=== PATIENT | female | born 1955 | race Caucasian/White ===

== ENCOUNTER → 2016-12-06 | Outpatient (CLI) | payer MEDICAID ==
[~2016-12-06] MED LIST: Gadobutrol 10 mMOL/10 ML SDV IVPUSH STA
--- NOTE | 2016-12-08 13:57 | MR ---
EXAM DATE: 12/06/16 PATIENT'S AGE: 61 Patient: CLAUDETTE WHITFIELD Facility: [facility] Site . Site : [id number] Study: MRI-Spine Cervical [id number]/2017 6:15:29 PM Ordering Physician: Adam Glynn Final Report: Indication: Neck pain. History of cervical spine fusion. Technique: Noncontrast sagittal T1-T2 STIR and axial GRE sequences are provided no comparisons. Findings: Evidence of anterior screw and plate fixation of C5-6 and 7. Remainder of the cervical spine demonstrates normal overall stature, alignment and intrinsic marrow signal remainder of the cervical spine demonstrates normal wall stature, alignment and marrow signal. No suspicious regions of abnormal contrast enhancement. No abnormal signal cervical cord. C2-3: Unremarkable. C3-4: Unremarkable. C4-5: Mild underlying disc bulge results in no significant central canal or foraminal narrowing. C5-6: Central canal and neural foramina are patent. C6-7: Central canal and neural foramina are patent. C7-T1: Minor disk bulge with asymmetric uncovertebral joint and facet arthropathy results in no central canal or right foraminal with mild left-sided foraminal narrowing. Impression: 1. Postoperative changes of anterior C5-7 fusion. 2. Mild left C7-T1 foraminal narrowing. Dictated by Gaurav Salazar MD @ Dec 07 2016 1:50PM Signed by: Gaurav Salazar MD @12/07/2016 1:55:47 PM (Electronic Signature) Report Signed by Proxy and Original Signed Document filed in the Medical Record. [facility]
== END ==
LOC: MW.MRI 16:29
PROVIDERS: ATTEND Nurse Practitioner Family
DX: M54.2 Cervicalgia (principal); Z98.890 Other specified postprocedural states
CPT/HCPCS: 72156; A9585

== ENCOUNTER 2017-04-18 10:48 | Emergency (ER) | payer MEDICAID ==
--- NOTE | 2017-04-18 11:29 | EDM.PDOC ---
ED HPI GENERAL MEDICAL PROBLEM - General Chief Complaint: Abdominal Pain Stated Complaint: ABDOMINAL SYMPTOMS Time Seen by Provider: 04/18/17 10:59 Source of Information: Reports: Patient History Limitations: Reports: No Limitations - History of Present Illness INITIAL COMMENTS - FREE TEXT/NARRATIVE: Presents reporting tarry stool, fatigue, tiredness and some dizziness. The patient states that over the weekend of April 08 and she had the stomach flu with fever, chills, nausea and vomiting. By MondayApril 12 the symptoms had resolved. On Monday however she started having some black tarry stools and then over the weekend developed epigastric pain, lower abdominal cramping, fatigue, tiredness, dizziness, nausea and vomiting with weight loss. She states that her stools are formed but black and tarry and without blood or mucus. She did call her primary provider was not able to get her into the clinic and ask her to be evaluated in the emergency room. She did eat this morning and was able to keep the food down but does still feel nauseated. epigatric Pain Score (Numeric/FACES): 8 - Related Data Allergies Allergy/AdvReac Type Severity Reaction Status Date / Time erythromycin base Allergy Nausea and Verified 04/18/17 11:03 [Erythromycin Base] Vomiting Penicillins Allergy Rash Verified 04/18/17 11:03 Home Meds: Home Meds Levothyroxine [Synthroid] 1 tab PO DAILY 06/18/14 [History] Nasal [place] For Migraines 1 spray INH ASDIRECTED 06/18/14 [History] Pantoprazole [ProTONIX] 1 tab PO BID 06/18/14 [History] Venlafaxine [Effexor XR] 1 tab PO DAILY 06/18/14 [History] Topiramate [Topiramate ER] 100 mg PO DAILY 05/21/16 [History] traZODone 50 mg PO BEDTIME 05/21/16 [History] Gabapentin [Neurontin] 300 mg PO BID 04/18/17 [History] Ondansetron [Zofran ODT] 1 tab PO Q8H PRN #10 tab.dis 04/18/17 [Rx] Past Medical History - Past Health History Medical/Surgical History: Denies Medical/Surgical History HEENT History: Reports: Hard of Hearing Cardiovascular History: Reports: None Respiratory History: Reports: None Gastrointestinal History: Reports: GERD Genitourinary History: Reports: None 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: Musculoskeletal History: Reports: Fibromyalgia Neurological History: Reports: Migraines Psychiatric History: Reports: Depression Endocrine/Metabolic History: Reports: Hypothyroidism Hematologic History: Reports: None Immunologic History: Reports: None Dermatologic History: Reports: None - Infectious Disease History Infectious Disease History: Reports: Chicken Pox, Measles, Mononucleosis, Mumps - Past Surgical History Head Surgeries/Procedures: Reports: None Female Surgical History: Reports: None Social & Family History - Family History Family Medical History: Noncontributory Cardiac: Reports: DC - Tobacco Use Smoking Status *Q: Never Smoker Second Hand Smoke Exposure: Yes - Caffeine Use Caffeine Use: Reports: Coffee - Alcohol Use Days Per Week of Alcohol Use: 0 - Recreational Drug Use Recreational Drug Use: No ED ROS GENERAL - Review of Systems Review Of Systems: ROS reveals no pertinent complaints other than HPI. ED EXAM, GI/ABD - Physical Exam Exam: See Below Exam Limited By: No Limitations General Appearance: Alert, No Apparent Distress Ears: Normal External Exam Nose: Normal Inspection Throat/Mouth: Normal Inspection Head: Atraumatic, Normocephalic Neck: Normal Inspection Respiratory/Chest: No Respiratory Distress, Lungs Clear, Normal Breath Sounds Cardiovascular: Normal Peripheral Pulses, Regular Rate, Rhythm, No Murmur GI/Abdominal Exam: Normal Bowel Sounds, Soft, No Distention, Other (RUQ and epigastric tenderness) Back Exam: No: CVA Tenderness (L), CVA Tenderness (R) Extremities: Normal Inspection, Normal Range of Motion Neurological: Alert, Oriented Psychiatric: Normal Affect, Normal Mood Skin Exam: Warm, Dry, Intact, Normal Color, No Rash Lymphatic: No Adenopathy Course - Vital Signs Last Recorded V/S: Last Vital Signs Temp 36.6 C 04/18/17 11:03 Pulse 89 04/18/17 11:03 Resp 18 04/18/17 11:03 BP 140/79 04/18/17 11:03 Pulse Ox 96 04/18/17 11:03 - Orders/Labs/Meds Orders: Active Orders 24 hr Category Date Time Status CBC WITH AUTO DIFF [HEME] Stat Lab 04/18/17 11:08 Ordered CMP [COMPREHENSIVE METABOLIC PN,CMP] [CHEM] Stat Lab 04/18/17 11:09 Ordered UA W/MICROSCOPIC [URIN] Stat Lab 04/18/17 11:09 Uncollected - Re-Assessments/Exams Free Text/Narrative Re-Assessment/Exam: 04/18/17 14:18 Attempted to get a stool specimen for occult blood but the rectal vault was completely clean of all stool and residue. Free Text/Narrative Re-Assessment/Exam: 04/18/17 16:16 The patient states that she has an appointment next week with a general surgeon for a colonoscopy and EGD consultation. Departure - Departure Time of Disposition: 16:17 Disposition: Home, Self-Care 01 Condition: Good Clinical Impression: Epigastric abdominal pain - Discharge Information Referrals: PCP,None [Primary Care Provider] - Pipe Cardenas MD [Physician] - Forms: ED Department Discharge Additional Instructions: 1. Please follow-up with Dr. Cardenas. You have been sent home with a copy of your labs and ultrasound report for Dr. Cardenas review. 2. Please follow-up with Dr. Clark, general surgery for an EGD and colonoscopy evaluation as previously scheduled next week. 3. Zofran every 8 hours as needed for nausea 4. [place] every 6-8 hours as needed for pain with food. No driving or operating machinery. 5. Continue to take your pantoprazole as you have been doing 6. Return promptly for vomiting and not able to keep fluids down, pain not relieved by [place], dizziness or fainting, bloody stools. - My Orders Last 24 Hours: My Active Orders 04/18/17 11:08 CBC WITH AUTO DIFF [HEME] Stat 04/18/17 11:09 CMP [COMPREHENSIVE METABOLIC PN,CMP] [CHEM] Stat UA W/MICROSCOPIC [URIN] Stat - Assessment/Plan Last 24 Hours: My Active Orders 04/18/17 11:08 CBC WITH AUTO DIFF [HEME] Stat 04/18/17 11:09 CMP [COMPREHENSIVE METABOLIC PN,CMP] [CHEM] Stat UA W/MICROSCOPIC [URIN] Stat
[2017-04-18] MEDS ORDERED: Sodium Chloride 0.9% 2.5 ML Syringe FLUSH PRN (12:54)
[2017-04-18] MEDS ORDERED: Ondansetron 4 MG/2 ML SDV IVPUSH ONE (12:54)
[2017-04-18] MEDS ORDERED: Sodium Chloride 0.9% 10 ML Syringe FLUSH PRN (12:54)
[2017-04-18] MEDS ORDERED: Morphine 2 MG/ML Syringe IVPUSH ONE (12:54)
[2017-04-18] MEDS ORDERED: Sodium Chloride 0.9% 1,000 ML IV ONE (12:55)
--- NOTE | 2017-04-18 13:59 | US ---
EXAMINATION: Right upper quadrant ultrasound HISTORY: Pain COMPARISON: None TECHNIQUE: Grayscale and color Doppler images obtained of the right upper quadrant. FINDINGS: The visualized pancreas appears normal. The liver is normal in contour and echotexture. No focal hepatic mass. The gallbladder wall thickness is normal. No pericholecystic fluid or shadowing gallstones. Common bile duct measures up to 4 mm. The right kidney measures 10.3 cm is [id number] without evidence of hydronephrosis. Sonographic Bravo sign is negative. IMPRESSION: Grossly unremarkable right upper quadrant ultrasound.
[2017-04-18 16:53] VITALS: BP 135/76
== END 2017-04-18 16:53 | disposition home or self-care (01) ==
LOC: MW.ED 10:48
DX: R10.13 Epigastric pain (principal); K21.9 Gastro-esophageal reflux disease without esophagitis; E03.9 Hypothyroidism, unspecified; G43.909 Migraine, unspecified, not intractable, without status migrainosus; F32.9 Major depressive disorder, single episode, unspecified; Z88.1 Allergy status to other antibiotic agents; Z88.0 Allergy status to penicillin; Z79.899 Other long term (current) drug therapy
CPT/HCPCS: 36415; 76705; 80053; 81001; 82150; 83690; 85025; 96361; 96374; 96375; 99284; J2270; J2405; J7040; 99283

== ENCOUNTER 2017-05-18 10:56 | Day surgery (SDC) | payer MEDICAID ==
[~2017-05-18 10:56] MED LIST changes: -Gadobutrol 10 mMOL/10 ML SDV IVPUSH STA; +Lactated Ringers 1,000 ML IV SCH
[2017-05-18] MEDS ORDERED: Lidocaine 2% 5 ML SDV ONE (11:05)
[2017-05-18] MEDS ORDERED: fentaNYL 100 MCG/2 ML SDV ONE (11:06)
[2017-05-18] MEDS ORDERED: Midazolam 1 MG/ML 2 ML SDV ONE (11:06)
[2017-05-18] MEDS ORDERED: Propofol 200 MG/20 ML SDV ONE (11:06)
--- NOTE | 2017-05-18 11:48 | PCM.PREANE ---
Preanesthetic Assessment - Procedure Proposed Procedure: EGD/Colonoscopy - Anesthesia/Transfusion/Family Hx Anesthesia History: Prior Anesthesia Without Reaction Family History of Anesthesia Reaction: No Transfusion History: Prior Transfusion Without Reaction Intubation History: Unknown Additional History: Fibromyalgia with chronic pain and did not take AM dose of Gabapentin. - Review of Systems General: Other (exam for Hx: black ,tarry stools) Pulmonary: No Symptoms Cardiovascular: Other (hypertension) Gastrointestinal: Other (GERD) Neurological: Other (febromyalgia) Other: Reports: Thyroid Problems (hypothyroid), Depression, Anxiety - Physical Assessment Height: 5 ft 5.5 in Weight: 168 lb ASA Class: 3 Mental Status: Alert & Oriented x3 Airway Class: Mallampati = 1 Dentition: Reports: Normal Dentition Thyro-Mental Finger Breadths: 3 Mouth Opening Finger Breadths: 3 Lungs: Clear to Auscultation, Normal Respiratory Effort Cardiovascular: Regular Rate, Regular Rhythm, No Murmurs Other: hears only higher register sounds; not deep voice sounds - Allergies Allergies/Adverse Reactions: Allergies Allergy/AdvReac Type Severity Reaction Status Date / Time erythromycin base Allergy Nausea and Verified 04/18/17 11:03 [Erythromycin Base] Vomiting Penicillins Allergy Rash Verified 04/18/17 11:03 - Blood Blood Available: No Product(s) Available: None - Acknowledgements Anesthesia Type Planned: MAC Pt an Appropriate Candidate for the Planned Anesthesia: Yes Alternatives and Risks of Anesthesia Discussed w Pt/Guardian: Yes Pt/Guardian Understands and Agrees with Anesthesia Plan: Yes PreAnesthesia Questionnaire - Past Health History Medical/Surgical History: Denies Medical/Surgical History HEENT History: Reports: Hard of Hearing Cardiovascular History: Reports: None Respiratory History: Reports: None Gastrointestinal History: Reports: GERD, PUD Genitourinary History: Reports: None 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: Musculoskeletal History: Reports: Arthritis, Fracture, Fibromyalgia Other Musculoskeletal History: hx of fx right elbow, wrist and foot Neurological History: Reports: Migraines Psychiatric History: Reports: Depression Endocrine/Metabolic History: Reports: Hypothyroidism Hematologic History: Reports: None, Blood Transfusion(s) Immunologic History: Reports: None Oncologic (Cancer) History: Reports: None Dermatologic History: Reports: None - Infectious Disease History Infectious Disease History: Reports: Chicken Pox, Measles, Mononucleosis, Mumps - Past Surgical History Head Surgeries/Procedures: Reports: None HEENT Surgical History: Reports: Naso-Sinus Surgery, Tonsillectomy GI Surgical History: Reports: Appendectomy Female Surgical History: Reports: None, Hysterectomy, Oophorectomy Neurological Surgical History: Reports: C-Spine Other Neurological Surgeries/Procedures: fusion of cervical vertebrate, has degenerative disc disease - SUBSTANCE USE Smoking Status *Q: Never Smoker Second Hand Smoke Exposure: Yes Days Per Week of Alcohol Use: 0 Recreational Drug Use History: No - HOME MEDS Home Medications: Home Meds Levothyroxine [Synthroid] 75 mcg PO DAILY 06/18/14 [History] Pantoprazole [ProTONIX] 1 tab PO BEDTIME 06/18/14 [History] Venlafaxine [Effexor XR] 225 mg PO DAILY 06/18/14 [History] traZODone 50 mg PO BEDTIME PRN 05/21/16 [History] Gabapentin [Neurontin] 600 mg PO BID 04/18/17 [History] Aspirin 81 mg CHEW DAILY 05/15/17 [History] Biotin 1,000 mcg PO DAILY 05/15/17 [History] Calcium Citrate [Calcitrate (190 MG Calcium)] 2 tab PO BID 05/15/17 [History] Fluticasone Propionate [Flonase Allergy Relief] 2 spray NASBOTH DAILY 05/15/17 [ History] Ibuprofen 600 mg PO ASDIRECTED PRN 05/15/17 [History] Multivitamin [Multivitamins] 1 tab PO DAILY 05/15/17 [History] Ondansetron [Zofran ODT] 1 tab SL Q8H PRN 05/15/17 [History] Vitamin B Complex [Super B-50 Complex] 1 tab PO DAILY 05/15/17 [History] Vitamin E 400 units PO DAILY 05/15/17 [History] Lutein 20 mg PO DAILY 05/16/17 [History] - CURRENT (IN HOUSE) MEDS Current Meds: Current Medications Lactated Ringer's (Ringers, Lactated) 1,000 mls @ 125 mls/hr IV ASDIRECTED KEVIN Last Admin: 05/18/17 11:22 Dose: 125 mls/hr Discontinued Medications Fentanyl (Sublimaze) Confirm Administered Dose 100 mcg .ROUTE .STK-MED ONE Stop: 05/18/17 11:07 Lidocaine (Xylocaine-Mpf 2%) Confirm Administered Dose 10 ml .ROUTE .STK-MED ONE Stop: 05/18/17 11:06 Midazolam HCl (Versed 1 Mg/Ml) Confirm Administered Dose 2 mg .ROUTE .STK-MED ONE Stop: 05/18/17 11:07 Propofol (Diprivan 20 Ml) Confirm Administered Dose 400 mg .ROUTE .STK-MED ONE Stop: 05/18/17 11:07
--- NOTE | 2017-05-18 12:05 | PCM.PREANE ---
Preanesthetic Assessment - Anesthesia/Transfusion/Family Hx Anesthesia History: Prior Anesthesia Without Reaction Family History of Anesthesia Reaction: No Transfusion History: Prior Transfusion Without Reaction Intubation History: Unknown - Review of Systems General: No Symptoms Pulmonary: No Symptoms Cardiovascular: Other (hypertension) Gastrointestinal: Other (GERD) Neurological: Other (Fibromyalgia) Other: Reports: Thyroid Problems (hypothyroid), Depression, Anxiety - Physical Assessment NPO Status Date: 05/17/17 NPO Status Time: 22:30 O2 Sat by Pulse Oximetry: 97 Respiratory Rate: 16 Vital Signs: Last Vital Signs Temp 98.8 F 05/18/17 11:03 Pulse 86 05/18/17 11:03 Resp 16 05/18/17 11:03 BP 136/77 05/18/17 11:03 Pulse Ox 97 05/18/17 11:03 Height: 5 ft 5.5 in Weight: 168 lb ASA Class: 3 Mental Status: Alert & Oriented x3 Airway Class: Mallampati = 1 Dentition: Reports: Normal Dentition Thyro-Mental Finger Breadths: 3 Mouth Opening Finger Breadths: 3 ROM/Head Extension: Full Lungs: Clear to Auscultation, Normal Respiratory Effort Cardiovascular: Regular Rate, Regular Rhythm Other: Hearing deficit; worst with "deep voice" sounds - Allergies Allergies/Adverse Reactions: Allergies Allergy/AdvReac Type Severity Reaction Status Date / Time erythromycin base Allergy Nausea and Verified 04/18/17 11:03 [Erythromycin Base] Vomiting Penicillins Allergy Rash Verified 04/18/17 11:03 - Blood Blood Available: No Product(s) Available: None - Acknowledgements Anesthesia Type Planned: MAC Pt an Appropriate Candidate for the Planned Anesthesia: Yes Alternatives and Risks of Anesthesia Discussed w Pt/Guardian: Yes Pt/Guardian Understands and Agrees with Anesthesia Plan: Yes PreAnesthesia Questionnaire - Past Health History Medical/Surgical History: Denies Medical/Surgical History HEENT History: Reports: Hard of Hearing Cardiovascular History: Reports: None Respiratory History: Reports: None Gastrointestinal History: Reports: GERD, PUD Genitourinary History: Reports: None 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: Musculoskeletal History: Reports: Arthritis, Fracture, Fibromyalgia Other Musculoskeletal History: hx of fx right elbow, wrist and foot Neurological History: Reports: Migraines Psychiatric History: Reports: Depression Endocrine/Metabolic History: Reports: Hypothyroidism Hematologic History: Reports: None, Blood Transfusion(s) Immunologic History: Reports: None Oncologic (Cancer) History: Reports: None Dermatologic History: Reports: None - Infectious Disease History Infectious Disease History: Reports: Chicken Pox, Measles, Mononucleosis, Mumps - Past Surgical History Head Surgeries/Procedures: Reports: None HEENT Surgical History: Reports: Naso-Sinus Surgery, Tonsillectomy GI Surgical History: Reports: Appendectomy Female Surgical History: Reports: None, Hysterectomy, Oophorectomy Neurological Surgical History: Reports: C-Spine Other Neurological Surgeries/Procedures: fusion of cervical vertebrate, has degenerative disc disease - SUBSTANCE USE Smoking Status *Q: Never Smoker Second Hand Smoke Exposure: Yes Days Per Week of Alcohol Use: 0 Recreational Drug Use History: No - HOME MEDS Home Medications: Home Meds Levothyroxine [Synthroid] 75 mcg PO DAILY 06/18/14 [History] Pantoprazole [ProTONIX] 1 tab PO BEDTIME 06/18/14 [History] Venlafaxine [Effexor XR] 225 mg PO DAILY 06/18/14 [History] traZODone 50 mg PO BEDTIME PRN 05/21/16 [History] Gabapentin [Neurontin] 600 mg PO BID 04/18/17 [History] Aspirin 81 mg CHEW DAILY 05/15/17 [History] Biotin 1,000 mcg PO DAILY 05/15/17 [History] Calcium Citrate [Calcitrate (190 MG Calcium)] 2 tab PO BID 05/15/17 [History] Fluticasone Propionate [Flonase Allergy Relief] 2 spray NASBOTH DAILY 05/15/17 [ History] Ibuprofen 600 mg PO ASDIRECTED PRN 05/15/17 [History] Multivitamin [Multivitamins] 1 tab PO DAILY 05/15/17 [History] Ondansetron [Zofran ODT] 1 tab SL Q8H PRN 05/15/17 [History] Vitamin B Complex [Super B-50 Complex] 1 tab PO DAILY 05/15/17 [History] Vitamin E 400 units PO DAILY 05/15/17 [History] Lutein 20 mg PO DAILY 05/16/17 [History] - CURRENT (IN HOUSE) MEDS Current Meds: Current Medications Lactated Ringer's (Ringers, Lactated) 1,000 mls @ 125 mls/hr IV ASDIRECTED KEVIN Last Admin: 05/18/17 11:22 Dose: 125 mls/hr Discontinued Medications Fentanyl (Sublimaze) Confirm Administered Dose 100 mcg .ROUTE .STK-MED ONE Stop: 05/18/17 11:07 Lidocaine (Xylocaine-Mpf 2%) Confirm Administered Dose 10 ml .ROUTE .STK-MED ONE Stop: 05/18/17 11:06 Midazolam HCl (Versed 1 Mg/Ml) Confirm Administered Dose 2 mg .ROUTE .STK-MED ONE Stop: 05/18/17 11:07 Propofol (Diprivan 20 Ml) Confirm Administered Dose 400 mg .ROUTE .STK-MED ONE Stop: 05/18/17 11:07
--- NOTE | 2017-05-18 12:56 | PCM.OPNOTE ---
- General Post-Op/Procedure Note Date of Surgery/Procedure: 05/18/17 Operative Procedure(s): egd w bx and colonoscopy Findings: see dict [id number] Pre Op Diagnosis: gib Post-Op Diagnosis: gastritis and colon diverticulosis Anesthesia Technique: Moderate Sedation Primary Surgeon: Vito Clark Pathology: sent Complications: None Condition: Good
[2017-05-18 13:53] VITALS: BP 114/64
--- NOTE | 2017-05-18 14:02 | PCM48HPAN ---
Post Anesthesia Note - EVALUATION WITHIN 48HRS OF ANESTHETIC Vital Signs in Normal Range: Yes Patient Participated in Evaluation: Yes Respiratory Function Stable: Yes Airway Patent: Yes Cardiovascular Function Stable: Yes Hydration Status Stable: Yes Pain Control Satisfactory: Yes Nausea and Vomiting Control Satisfactory: Yes Mental Status Recovered: Yes
--- NOTE | 2017-05-18 14:06 | OR ---
SURGEON: Vito Clark MD DATE OF PROCEDURE: 05/18/2017 PREOPERATIVE DIAGNOSIS: Gastrointestinal bleeding. POSTOPERATIVE DIAGNOSES: Gastritis and colon diverticulosis. PROCEDURE PERFORMED: Esophagogastroduodenoscopy with biopsy and colonoscopy. FINDINGS: 1. The patient is easily sedated with WEB OPERATIONS MANAGER and Diprivan. The patient is soundly snoring. 2. Oropharynx and proximal esophagus is free of disease. No stricture or inflammation. Distal esophagus at GE junction at 40 shows mild salmon color change consistent with acid reflux. Stomach rugae is normal in appearance and there is no bile, food, blood, ulcer. Antrum is mildly inflamed and duodenum was grossly normal in appearance. Scope retrieved back to the stomach. Retroflexed look at the fundus of stomach, there was no hiatal hernia. Biopsy done at antrum, body, and GE junction at 40, and sucked out the air while scope pulling out. DESCRIPTION OF PROCEDURE: EGD: The patient was taken to the endoscopy room, and with the WEB OPERATIONS MANAGER, Diprivan was administered. A well-lubricated EGD scope was gently inserted through the oropharynx, down the esophagus, passing through the gastroesophageal junction, into the stomach. The mucosa was examined upon the passage. Any etiology will be noted. Once in the stomach, we continued to advance to the distal antrum, passed through the pylorus into the second portion of the duodenum. Again, the mucosa was examined for any abnormality and etiology. The scope was then retrieved back to the stomach and then retroflexed to look at the fundus of the stomach. If a biopsy was indicated, we will biopsy the antrum, body, and gastroesophageal junction. The air will be sucked out while the scope is retrieved to reduce the patient's discomfort. The patient tolerated the procedure well. There were no intraoperative complications. Dr. Clark was present through the whole procedure. Prior to surgery, a time-out had been called, the patient identified, procedure identified and antibiotic administered. COLONOSCOPY FINDINGS: The patient was easily sedated with WEB OPERATIONS MANAGER and Diprivan. The patient was soundly snoring and bowel prep was left to be desirable. A large amount of opaque green colored liquid stool coating the mucosa as well as obscured the examination, so this was a compromised study because of bowel prep. It is acceptable and but is a very compromised study. Colon is very straightforward. Cecum indicated by ileocecal fold, one-to-one indentation, light mittens is not observed. Appendix orifice is observed. Mucosa was examined and upon scope pulling out with constant irrigation and the patient has mild diverticulosis in the left colon. No signs or symptoms of diverticulitis. No inflammation, stricture, ulceration, growth, polyp, AV malformation, ulcer, bleeding none of those and the patient has mild internal hemorrhoids. The patient has moderate internal hemorrhoids and mild external hemorrhoids. The patient would benefit from a repeat colonoscopy in 5-10 years from today mainly because of suboptimum bowel prep or if clinically indicated otherwise. DESCRIPTION OF PROCEDURE: The patient was taken to the endoscopy room. A time out was called, patient identified, and procedure identified. Diprivan was then administrated. Patient went from awake to sleep, hearing doctor talking or door closing is normal. Perineum inspection and digital examination were then performed. A well- lubricated colonoscope was gently inserted through the rectum, advanced past the rectosigmoid junction, the descending colon, splenic flexure, transverse colon, hepatic flexure, ascending colon, arrived to the cecum. Cecum was identified as dictated in the finding. Then the scope was carefully withdrawn while attention was paid to the mucosal surface for any abnormality. Air will be sucked out during the scope withdrawal. At the rectum, retroflexed to examine any rectal diseases, fistula or hemorrhoids. Patient tolerated procedure well. There were no intraoperative complications, and Dr. Clark was present throughout the whole procedure. As always, thank you for the kind referral. KEVIN / ARIANA /[id number]
== END 2017-05-18 13:49 | disposition home or self-care (01) ==
LOC: MW.SDS 10:56
PROVIDERS: ATTEND Surgery
DX: K29.50 Unspecified chronic gastritis without bleeding (principal); K20.9 Esophagitis, unspecified; K57.30 Diverticulosis of large intestine without perforation or abscess without bleeding; K64.4 Residual hemorrhoidal skin tags; K64.8 Other hemorrhoids; M19.90 Unspecified osteoarthritis, unspecified site; G89.29 Other chronic pain; M25.511 Pain in right shoulder; M50.30 Other cervical disc degeneration, unspecified cervical region; F41.8 Other specified anxiety disorders; M79.7 Fibromyalgia; K21.9 Gastro-esophageal reflux disease without esophagitis; I10 Essential (primary) hypertension; E87.6 Hypokalemia; E03.9 Hypothyroidism, unspecified; G43.019 Migraine without aura, intractable, without status migrainosus; K58.9 Irritable bowel syndrome, unspecified; Z88.0 Allergy status to penicillin; Z88.1 Allergy status to other antibiotic agents; Z79.51 Long term (current) use of inhaled steroids; Z79.82 Long term (current) use of aspirin; Z79.899 Other long term (current) drug therapy; Z91.5 Personal history of self-harm; Z87.11 Personal history of peptic ulcer disease; Z98.1 Arthrodesis status; Z90.49 Acquired absence of other specified parts of digestive tract; Z90.710 Acquired absence of both cervix and uterus; Z90.721 Acquired absence of ovaries, unilateral; Z90.89 Acquired absence of other organs; Z98.890 Other specified postprocedural states; Z77.22 Contact with and (suspected) exposure to environmental tobacco smoke (acute) (chronic)
CPT/HCPCS: 43239; 45378; J2250; J3010; J7120; 00740; 88305; 88312; J2704

== ENCOUNTER 2017-09-01 11:13 | Emergency (ER) | payer MEDICAID ==
[2017-09-01] MEDS ORDERED: Albuterol/Ipratropium 3.0-0.5 MG/3 ML Neb Soln NEB ONE (11:15)
[2017-09-01] MEDS ORDERED: Sodium Chloride 0.9% 2.5 ML Syringe FLUSH PRN (11:15)
[2017-09-01] MEDS ORDERED: Sodium Chloride 0.9% 10 ML Syringe FLUSH PRN (11:15)
[2017-09-01] MEDS ORDERED: methylPREDNISolone Sodium Succinate 125 MG/2 ML SDV IVPUSH ONE (11:22)
--- NOTE | 2017-09-01 11:29 | EDM.PDOC ---
ED HPI GENERAL MEDICAL PROBLEM - General Stated Complaint: SOB Time Seen by Provider: 09/01/17 11:20 Source of Information: Reports: Patient History Limitations: Reports: No Limitations - History of Present Illness INITIAL COMMENTS - FREE TEXT/NARRATIVE: HISTORY AND PHYSICAL: []62-year-old female who became sick on Monday presents to the emergency room with worsening condition this morning History of Present Illness: []Patient did see her primary care provider is good on medications and has worsened Review of Systems: As per history of present illness and below otherwise all systems reviewed and negative. Past medical history: As per history of present illness and as reviewed below otherwise noncontributory. Surgical history: As per history of present illness and as reviewed below otherwise noncontributory. Social history: No reported history of drug or alcohol abuse. Family history: As per history of present illness and as reviewed below otherwise noncontributory. Physical exam: She fell out of the wheelchair on admission and was picked up by the front door several nurses. Stridor sounding respiratory status on admission. O2 saturation level of 98% on room air. Speaking in 3 word sentences. HEENT: Atraumatic, normocehpalic, pupils reactive, negative for conjunctival pallor or scleral icterus, mucous membranes moist, throat clear, neck supple, nontender, trachea midline. Lungs: Clear to auscultation, breath sounds equal bilaterally, chest non tender. Heart: S1S2, regular, negative for clicks, rubs, or JVD. Abdomen: Soft, nondistended, nontender. Negative for masses or hepatossplenmegaly. Negative for costovertebral tenderness. Pelvis: Stable nontender. Genitourinary: Deferred. Rectal: Deferred Extremities: Atraumatic, negative for cords or calf pain. Neurovascular unremarkable. Neuro: Awake, alert, oriented. Cranial nerves II through XII unremarkable. Cerebellum unremarkable. Motor and sensory unremarkable throughout. Exam nonfocal. Diagnostics: [CBC CMP chest x-ray] Therapeutics: [DuoNeb] Solu-Medrol Impression: []#1 asthma exacerbation #2 anxiety Plan: [Discharged home Prescription given for Medrol Dosepak Prescription for anxiety, Xanax] Follow-up PCP Definitive disposition and diagnosis as appropriate pending reevaluation and review of above. Onset: Sudden Duration: Day(s):, Getting Worse (3) Location: Reports: Neck, Chest Severity: Moderate - Related Data Allergies Allergy/AdvReac Type Severity Reaction Status Date / Time erythromycin base Allergy Nausea and Verified 09/01/17 11:20 [Erythromycin Base] Vomiting Penicillins Allergy Rash Verified 09/01/17 11:20 Home Meds: Home Meds Levothyroxine [Synthroid] 75 mcg PO DAILY 06/18/14 [History] Pantoprazole [ProTONIX] 1 tab PO BEDTIME 06/18/14 [History] Venlafaxine [Effexor XR] 225 mg PO DAILY 06/18/14 [History] traZODone 50 mg PO BEDTIME PRN 05/21/16 [History] Gabapentin [Neurontin] 600 mg PO BID 04/18/17 [History] Aspirin 81 mg CHEW DAILY 05/15/17 [History] Biotin 1,000 mcg PO DAILY 05/15/17 [History] Calcium Citrate [Calcitrate (190 MG Calcium)] 2 tab PO BID 05/15/17 [History] Fluticasone Propionate [Flonase Allergy Relief] 2 spray NASBOTH DAILY 05/15/17 [ History] Ibuprofen 600 mg PO ASDIRECTED PRN 05/15/17 [History] Multivitamin [Multivitamins] 1 tab PO DAILY 05/15/17 [History] Ondansetron [Zofran ODT] 1 tab SL Q8H PRN 05/15/17 [History] Vitamin B Complex [Super B-50 Complex] 1 tab PO DAILY 05/15/17 [History] Vitamin E 400 units PO DAILY 05/15/17 [History] Lutein 20 mg PO DAILY 05/16/17 [History] methylPREDNISolone [Medrol] 4 mg PO ASDIRECTED #1 dosepk 09/01/17 [Rx] Past Medical History - Past Health History Medical/Surgical History: Denies Medical/Surgical History HEENT History: Reports: Hard of Hearing Cardiovascular History: Reports: None Respiratory History: Reports: None Gastrointestinal History: Reports: GERD, PUD Genitourinary History: Reports: 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: Musculoskeletal History: Reports: Arthritis, Fracture, Fibromyalgia Other Musculoskeletal History: hx of fx right elbow, wrist and foot Neurological History: Reports: Migraines Psychiatric History: Reports: Depression Endocrine/Metabolic History: Reports: Hypothyroidism Hematologic History: Reports: None, Blood Transfusion(s) Immunologic History: Reports: None Oncologic (Cancer) History: Reports: None Dermatologic History: Reports: None - Infectious Disease History Infectious Disease History: Reports: Chicken Pox, Measles, Mononucleosis, Mumps - Past Surgical History Head Surgeries/Procedures: Reports: None HEENT Surgical History: Reports: Naso-Sinus Surgery, Tonsillectomy GI Surgical History: Reports: Appendectomy Female Surgical History: Reports: None, Hysterectomy, Oophorectomy Neurological Surgical History: Reports: C-Spine Other Neurological Surgeries/Procedures: fusion of cervical vertebrate, has degenerative disc disease Social & Family History - Family History Family Medical History: Noncontributory Cardiac: Reports: [place] - Tobacco Use Smoking Status *Q: Never Smoker Second Hand Smoke Exposure: Yes - Caffeine Use Caffeine Use: Reports: Coffee, Soda - Alcohol Use Days Per Week of Alcohol Use: 0 - Recreational Drug Use Recreational Drug Use: No Drug Use in Last 12 Months: No ED ROS GENERAL - Review of Systems Review Of Systems: ROS reveals no pertinent complaints other than HPI. ED EXAM, GENERAL - Physical Exam Exam: See Below Course - Vital Signs Last Recorded V/S: Last Vital Signs Temp 37.6 C 09/01/17 11:16 Pulse 104 H 09/01/17 11:16 Resp 28 H 09/01/17 11:16 BP 152/105 H 09/01/17 11:16 Pulse Ox 99 09/01/17 11:16 - Orders/Labs/Meds Orders: Active Orders 24 hr Category Date Time Status RT Aerosol Therapy [RC] ASDIRECTED Care 09/01/17 11:15 Active Sodium Chloride 0.9% [Saline Flush] Med 09/01/17 11:15 Active 10 ml FLUSH ASDIRECTED PRN Sodium Chloride 0.9% [Saline Flush] Med 09/01/17 11:15 Active 2.5 ml FLUSH ASDIRECTED PRN methylPREDNISolone [Medrol] Med 09/01/17 12:45 Ordered 4 mg PO DAILY Saline Lock Insert [OM.PC] Stat Oth 09/01/17 11:15 Ordered Medication Orders Methylprednisolone (Medrol) 4 mg PO DAILY KEVIN Sodium Chloride (Saline Flush) 10 ml FLUSH ASDIRECTED PRN PRN Reason: Keep Vein Open Sodium Chloride (Saline Flush) 2.5 ml FLUSH ASDIRECTED PRN PRN Reason: Keep Vein Open Labs: Laboratory Tests 09/01/17 09/01/17 Range/Units 11:20 11:20 WBC 6.77 (4.0-11.0) K/uL RBC 4.21 L (4.30-5.90) M/uL Hgb 12.7 (12.0-16.0) g/dL Hct 39.3 (36.0-46.0) % MCV 93.3 (80.0-98.0) fL MCH 30.2 (27.0-32.0) pg MCHC 32.3 (31.0-37.0) g/dL RDW Std Deviation 49.1 (28.0-62.0) fl RDW Coeff of Nicky 15 (11.0-15.0) % Plt Count 350 (150-400) K/uL MPV 9.10 (7.40-12.00) fL Neut % (Auto) 34.9 L (48.0-80.0) % Lymph % (Auto) 44.6 H (16.0-40.0) % [place] % (Auto) 12.1 (0.0-15.0) % Eos % (Auto) 8.1 H (0.0-7.0) % Baso % (Auto) 0.3 (0.0-1.5) % Neut # (Auto) 2.4 (1.4-5.7) K/uL Lymph # (Auto) 3.0 H (0.6-2.4) K/uL [place] # (Auto) 0.8 (0.0-0.8) K/uL Eos # (Auto) 0.6 (0.0-0.7) K/uL Baso # (Auto) 0.0 (0.0-0.1) K/uL Nucleated RBC % 0.0 /100WBC Nucleated RBCs # 0 K/uL Sodium 141 (136-146) mmol/L Potassium 3.9 (3.5-5.1) mmol/L Chloride 105 (98-110) mmol/L Carbon Dioxide 26 (21-31) mmol/L BUN 16 (6.0-23.0) mg/dL Creatinine 0.9 (0.6-1.5) mg/dL Est Cr Clr Drug Dosing 59.07 mL/min Estimated GFR (MDRD) > 60.0 ml/min Glucose 103 (60-110) mg/dL Calcium 9.8 (8.8-10.8) mg/dL Total Bilirubin 0.2 (0.1-1.5) mg/dL AST 17 (5-40) IU/L ALT 10 (8-54) IU/L Alkaline Phosphatase 91 (40-150) Total Protein 7.4 (6.0-8.0) g/dL Albumin 4.1 (3.4-4.8) g/dL Globulin 3.3 (2.0-3.5) g/dL Albumin/Globulin Ratio 1.2 L (1.3-2.8) Meds: Medications Generic Name Dose Route Start Last Admin Trade Name Freq PRN Reason Stop Dose Admin Methylprednisolone 4 mg 09/01/17 12:45 Medrol PO DAILY KEVIN Sodium Chloride 10 ml 09/01/17 11:15 Saline Flush FLUSH ASDIRECTED PRN Keep Vein Open Sodium Chloride 2.5 ml 09/01/17 11:15 Saline Flush FLUSH ASDIRECTED PRN Keep Vein Open Discontinued Medications Generic Name Dose Route Start Last Admin Trade Name Freq PRN Reason Stop Dose Admin Albuterol/Ipratropium 3 ml 09/01/17 11:15 09/01/17 11:30 Duoneb 3.0-0.5 Mg/3 Ml NEB 09/01/17 11:16 3 ml ONETIME ONE Administration Alprazolam 0.25 mg 09/01/17 11:50 09/01/17 12:21 Xanax PO 09/01/17 11:51 Not Given ONETIME ONE Alprazolam 0.25 mg 09/01/17 12:00 09/01/17 12:02 Xanax PO 09/01/17 12:01 0.25 mg ONETIME ONE Administration Alprazolam 0.25 mg 09/01/17 11:55 Xanax PO 09/01/17 11:56 NOW ONE Methylprednisolone Sodium Succinate 125 mg 09/01/17 11:22 09/01/17 11:32 Solu-Medrol IVPUSH 09/01/17 11:23 125 mg ONETIME ONE Administration Prednisolone 30 mg 09/01/17 11:35 09/01/17 11:58 Orapred 15 Mg/5ml Soln PO 09/01/17 11:36 30 mg ONETIME ONE Administration Departure - Departure Time of Disposition: 12:45 Disposition: Home, Self-Care 01 Condition: Good Clinical Impression: Asthma exacerbation - Discharge Information Prescriptions: methylPREDNISolone [Medrol] 4 mg PO ASDIRECTED #1 dosepk Instructions: Asthma, Adult Referrals: PCP,Unknown [Primary Care Provider] - Additional Instructions: The following information is given to patients seen in the emergency department who are being discharged to home. This information is to outline your options for follow-up care. We provide all patients seen in our emergency department with a follow-up referral. The need for follow-up, as well as the timing and circumstances, are variable depending upon the specifics of your emergency department visit. If you don't have a primary care physician on staff, we will provide you with a referral. We always advise you to contact your personal physician following an emergency department visit to inform them of the circumstance of the visit and for follow-up with them and/or the need for any referrals to a consulting specialist. The emergency department will also refer you to a specialist when appropriate. This referral assures that you have the opportunity for followup care with a specialist. All of these measure are taken in an effort to provide you with optimal care, which includes your followup. Under all circumstances we always encourage you to contact your private physician who remains a resource for coordinating your care. When calling for followup care, please make the office aware that this follow-up is from your recent emergency room visit. If for any reason you are refused follow-up, please contact the [facility] emergency department at and asked to speak to the emergency department charge nurse. Given a steroid to improve the breathing Follow-up with Dr. Foote your PCP - My Orders Last 24 Hours: My Active Orders 09/01/17 11:15 RT Aerosol Therapy [RC] ASDIRECTED Sodium Chloride 0.9% [Saline Flush] 10 ml FLUSH ASDIRECTED PRN Sodium Chloride 0.9% [Saline Flush] 2.5 ml FLUSH ASDIRECTED PRN Saline Lock Insert [OM.PC] Stat 09/01/17 12:45 methylPREDNISolone [Medrol] 4 mg PO DAILY - Assessment/Plan Last 24 Hours: My Active Orders 09/01/17 11:15 RT Aerosol Therapy [RC] ASDIRECTED Sodium Chloride 0.9% [Saline Flush] 10 ml FLUSH ASDIRECTED PRN Sodium Chloride 0.9% [Saline Flush] 2.5 ml FLUSH ASDIRECTED PRN Saline Lock Insert [OM.PC] Stat 09/01/17 12:45 methylPREDNISolone [Medrol] 4 mg PO DAILY
--- NOTE | 2017-09-01 11:32 | CR ---
EXAMINATION: Portable chest radiograph. HISTORY: Shortness of breath. FINDINGS: The trachea is midline. The cardiomediastinal silhouette is within normal limits. No pulmonary infilt rates, effusions or pneumothorax. Osseous structures appear unremarkable. IMPRESSION: No acute cardiopulmonary process.
[2017-09-01] MEDS ORDERED: prednisoLONE Soln 15 MG/5 ML UD Cup PO ONE (11:35)
[2017-09-01] MEDS ORDERED: ALPRAZolam 0.25 MG Tab PO ONE (11:50)
[2017-09-01] MEDS ORDERED: ALPRAZolam 0.5 MG Tab PO ONE ×2 (11:55→12:00)
[2017-09-01 12:09] LABS: CHLORIDE,CL 105 mmol/L (98-110); SODIUM,NA 141 mmol/L (136-146)
[2017-09-01 19:15] VITALS: BP 139/81
== END 2017-09-01 13:06 | disposition home or self-care (01) ==
LOC: MW.ED 11:13
DX: J45.901 Unspecified asthma with (acute) exacerbation (principal); F41.9 Anxiety disorder, unspecified; K21.9 Gastro-esophageal reflux disease without esophagitis; E03.9 Hypothyroidism, unspecified; F32.9 Major depressive disorder, single episode, unspecified; Z77.22 Contact with and (suspected) exposure to environmental tobacco smoke (acute) (chronic); Z79.82 Long term (current) use of aspirin; Z79.899 Other long term (current) drug therapy; Z88.0 Allergy status to penicillin; Z88.1 Allergy status to other antibiotic agents
CPT/HCPCS: 71010; 80053; 85025; 94640; 96374; 99285; A9270; J2930; 99283

== ENCOUNTER 2017-11-04 14:55 | Observation (INO) | payer MEDICAID ==
[2017-11-04] MEDS ORDERED: Ketorolac 30 MG/ML SDV IVPUSH ONE (14:57)
[2017-11-04] MEDS ORDERED: Sodium Chloride 0.9% 1,000 ML IV ONE ×2 (14:57→16:47)
[2017-11-04] MEDS ORDERED: Ondansetron 4 MG/2 ML SDV IVPUSH ONE (14:57)
--- NOTE | 2017-11-04 15:05 | EDM.PDOC ---
ED HPI GENERAL MEDICAL PROBLEM - General Stated Complaint: ABDOMINAL PAIN Time Seen by Provider: 11/04/17 14:59 Source of Information: Reports: Patient History Limitations: Reports: No Limitations - History of Present Illness INITIAL COMMENTS - FREE TEXT/NARRATIVE: HISTORY AND PHYSICAL: History of present illness: Patient is a 62-year-old female who presents to the emergency room today with multiple complaints which started Monday (10/01/2018). She states that she has had abdominal pain, cramping, nausea, vomiting and diarrhea since Monday. She states that she is unable to keep anything down (Vomiting/ Diarrhea) and has felt dizzy due to her symptoms. "As soon as I eat, I either vomit or it goes straight through me". Today she felt somewhat better and went to shower, as she got out of the shower she started to feel dizzy and slipped and fell hitting her head. EMS has placed her in a cervical collar. She is currently complaining of a headache, neck pain and her GI symptoms. Patient reports that she has been seeing a provider at [facility] for her headaches and was recently diagnosed with a sinus infection. She was placed on Bactrim and stopped taking the medication on Monday (had 2 days left) as she started to have her GI symptoms. Review of systems: As per history of present illness and below otherwise all systems reviewed and negative. Past medical history: As per history of present illness and as reviewed below otherwise noncontributory. Surgical history: As per history of present illness and as reviewed below otherwise noncontributory. Social history: No reported history of drug or alcohol abuse. Family history: As per history of present illness and as reviewed below otherwise noncontributory. Physical exam: General: Well-developed and well-nourished 62-year-old female. Alert and oriented. Nontoxic appearing and in no acute distress. HEENT: Atraumatic, normocephalic, pupils reactive, negative for conjunctival pallor or scleral icterus, mucous membranes moist with dry lips, throat clear, neck supple, nontender, trachea midline. Lungs: Clear to auscultation, breath sounds equal bilaterally, chest nontender. Heart: S1S2, regular rate and rhythm without murmur Abdomen: Soft, nondistended, generalized tenderness throughout - no rebound tenderness. Negative for masses or hepatosplenomegaly. Negative for costovertebral tenderness. Pelvis: Stable nontender. Genitourinary: Deferred. Rectal: Deferred. Extremities: Moves all extremities per self without difficulty or deficiets. All were palpated, no pain with ROM or touch. She is negative for cords or calf pain. Neurovascular unremarkable. C-Spine/Back: No pinpoint vertebral tenderness with palpation. She does have some muscular tenderness to the cervical spine. Neuro: Awake, alert, oriented. Cranial nerves II through XII unremarkable. Cerebellum unremarkable. Motor and sensory unremarkable throughout. Exam nonfocal. Patient did have vomiting upon arrival. This was resolved after receiving the IV Zofran. She has not had a bowel movement since arrival here, we will attempt to get a stool sample for lab culture. WBC is 14.66, potassium 5.5, BUN/creatinine 27, creatinine 0.6. CT head/ cervical spine are normal. The CT of the abdomen was done without contrast as her BUN/creatinine are high. It shows no solid organ injury or disease. Small bowel quadrant calcification of unknown significance. I did contact Dr. Valdez for admission. He is agreeable to keeping the patient is observation at this time. She is aware and voices understanding and would like to stay overnight. Diagnostics: CBC, CMP, stool culture, CT abdomen and pelvis, CT head, C-spine CT Therapeutics: IV fluid, Zofran, toradol Impression: #1 Head injury #2 Abdominal Pain #3 Gastroenteritis #4 Dehydration Plan: Observation admission to Med/Surg Definitive disposition and diagnosis as appropriate pending reevaluation and review of above. Onset: Today Duration: Hour(s):, Week(s): Location: Reports: Head, Neck, Abdomen headache Pain Score (Numeric/FACES): 9 - Related Data Allergies Allergy/AdvReac Type Severity Reaction Status Date / Time erythromycin base Allergy Nausea and Verified 11/04/17 15:05 [Erythromycin Base] Vomiting Penicillins Allergy Rash Verified 11/04/17 15:05 Home Meds: Home Meds Levothyroxine [Synthroid] 75 mcg PO DAILY 06/18/14 [History] Pantoprazole [ProTONIX] 1 tab PO BEDTIME 06/18/14 [History] Venlafaxine [Effexor XR] 225 mg PO DAILY 06/18/14 [History] traZODone 50 mg PO BEDTIME PRN 05/21/16 [History] Gabapentin [Neurontin] 600 mg PO BID 04/18/17 [History] Aspirin 81 mg CHEW DAILY 05/15/17 [History] Biotin 1,000 mcg PO DAILY 05/15/17 [History] Calcium Citrate [Calcitrate (190 MG Calcium)] 2 tab PO BID 05/15/17 [History] Fluticasone Propionate [Flonase Allergy Relief] 2 spray NASBOTH DAILY 05/15/17 [ History] Ibuprofen 600 mg PO ASDIRECTED PRN 05/15/17 [History] Multivitamin [Multivitamins] 1 tab PO DAILY 05/15/17 [History] Ondansetron [Zofran ODT] 1 tab SL Q8H PRN 05/15/17 [History] Vitamin B Complex [Super B-50 Complex] 1 tab PO DAILY 05/15/17 [History] Vitamin E 400 units PO DAILY 05/15/17 [History] Lutein 20 mg PO DAILY 05/16/17 [History] methylPREDNISolone [Medrol] 4 mg PO ASDIRECTED #1 dosepk 09/01/17 [Rx] Past Medical History - Past Health History Medical/Surgical History: Denies Medical/Surgical History HEENT History: Reports: Hard of Hearing Cardiovascular History: Reports: None Respiratory History: Reports: None Gastrointestinal History: Reports: GERD, PUD Genitourinary History: Reports: None 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: Musculoskeletal History: Reports: Arthritis, Fracture, Fibromyalgia Other Musculoskeletal History: hx of fx right elbow, wrist and foot Neurological History: Reports: Migraines Psychiatric History: Reports: Depression Endocrine/Metabolic History: Reports: Hypothyroidism Hematologic History: Reports: None, Blood Transfusion(s) Immunologic History: Reports: None Oncologic (Cancer) History: Reports: None Dermatologic History: Reports: None - Infectious Disease History Infectious Disease History: Reports: Chicken Pox, Measles, Mononucleosis, Mumps - Past Surgical History Head Surgeries/Procedures: Reports: None HEENT Surgical History: Reports: Naso-Sinus Surgery, Tonsillectomy GI Surgical History: Reports: Appendectomy Female Surgical History: Reports: None, Hysterectomy, Oophorectomy Neurological Surgical History: Reports: C-Spine Other Neurological Surgeries/Procedures: fusion of cervical vertebrate, has degenerative disc disease Social & Family History - Family History Family Medical History: Noncontributory Cardiac: Reports: [place] - Tobacco Use Smoking Status *Q: Never Smoker Second Hand Smoke Exposure: Yes - Caffeine Use Caffeine Use: Reports: Coffee, Soda - Alcohol Use Days Per Week of Alcohol Use: 0 - Recreational Drug Use Recreational Drug Use: No Drug Use in Last 12 Months: No ED ROS GENERAL - Review of Systems Review Of Systems: ROS reveals no pertinent complaints other than HPI. ED EXAM, GI/ABD - Physical Exam Exam: See Below (See dictation) Course - Vital Signs Last Recorded V/S: Last Vital Signs Temp 96.4 F 11/04/17 15:06 Pulse 95 11/04/17 16:25 Resp 18 11/04/17 16:25 BP 168/81 H 11/04/17 16:25 Pulse Ox 98 11/04/17 16:25 - Orders/Labs/Meds Orders: Active Orders 24 hr Category Date Time Status Abdomen Pelvis w Cont [CT] Stat Exams 11/04/17 14:57 Taken Cervical Spine wo Cont [CT] Stat Exams 11/04/17 14:57 Taken Head wo Cont [CT] Stat Exams 11/04/17 14:57 Taken CDIFF TOX A+B [OP] Stat Lab 11/04/17 16:51 Uncollected CULTURE STOOL + CAMPY+SHIGATOX [RM] Stat Lab 11/04/17 14:57 Uncollected UA W/MICROSCOPIC [URIN] Stat Lab 11/04/17 16:51 Uncollected Sodium Chloride 0.9% [Normal Saline] 1,000 ml Med 11/04/17 16:47 Ordered IV STAT Medication Orders Sodium Chloride (Normal Saline) 1,000 mls @ 100 mls/hr IV STAT ONE Stop: 11/05/17 02:46 Labs: Laboratory Tests 11/04/17 11/04/17 Range/Units 15:08 15:08 WBC 14.66 H (4.0-11.0) K/uL RBC 5.21 (4.30-5.90) M/uL Hgb 15.6 (12.0-16.0) g/dL Hct 47.6 H (36.0-46.0) % MCV 91.4 (80.0-98.0) fL MCH 29.9 (27.0-32.0) pg MCHC 32.8 (31.0-37.0) g/dL RDW Std Deviation 47.4 (28.0-62.0) fl RDW Coeff of Nicky 14 (11.0-15.0) % Plt Count 401 H (150-400) K/uL MPV 9.20 (7.40-12.00) fL Neut % (Auto) 80.0 (48.0-80.0) % Lymph % (Auto) 13.4 L (16.0-40.0) % [place] % (Auto) 5.7 (0.0-15.0) % Eos % (Auto) 0.8 (0.0-7.0) % Baso % (Auto) 0.1 (0.0-1.5) % Neut # (Auto) 11.7 H (1.4-5.7) K/uL Lymph # (Auto) 2.0 (0.6-2.4) K/uL [place] # (Auto) 0.8 (0.0-0.8) K/uL Eos # (Auto) 0.1 (0.0-0.7) K/uL Baso # (Auto) 0.0 (0.0-0.1) K/uL Nucleated RBC % 0.0 /100WBC Nucleated RBCs # 0 K/uL Sodium 142 (136-146) mmol/L Potassium 5.5 H (3.5-5.1) mmol/L Chloride 105 (98-110) mmol/L Carbon Dioxide 21 (21-31) mmol/L BUN 27 H (6.0-23.0) mg/dL Creatinine 1.6 H (0.6-1.5) mg/dL Est Cr Clr Drug Dosing 33.22 mL/min Estimated GFR (MDRD) 32.8 ml/min Glucose 162 H (60-110) mg/dL Calcium 11.3 H (8.8-10.8) mg/dL Total Bilirubin 0.4 (0.1-1.5) mg/dL AST 22 (5-40) IU/L ALT 17 (8-54) IU/L Alkaline Phosphatase 99 (40-150) Total Protein 8.6 H (6.0-8.0) g/dL Albumin 4.8 (3.4-4.8) g/dL Globulin 3.8 H (2.0-3.5) g/dL Albumin/Globulin Ratio 1.3 (1.3-2.8) Meds: Medications Generic Name Dose Route Start Last Admin Trade Name Freq PRN Reason Stop Dose Admin Sodium Chloride 1,000 mls @ 100 mls/hr 11/04/17 16:47 Normal Saline IV 11/05/17 02:46 STAT ONE Discontinued Medications Generic Name Dose Route Start Last Admin Trade Name David PRN Reason Stop Dose Admin Sodium Chloride 1,000 mls @ 999 mls/hr 11/04/17 14:57 11/04/17 15:03 Normal Saline IV 11/04/17 15:57 999 mls/hr STAT ONE Administration Ketorolac Tromethamine 30 mg 11/04/17 14:57 11/04/17 15:04 Toradol IVPUSH 11/04/17 14:58 30 mg ONETIME ONE Administration Morphine Sulfate 2 mg 11/04/17 16:18 11/04/17 16:23 Morphine IVPUSH 11/04/17 16:19 2 mg ONETIME ONE Administration Ondansetron HCl 4 mg 11/04/17 14:57 11/04/17 15:03 Zofran IVPUSH 11/04/17 14:58 4 mg ONETIME ONE Administration Departure - Departure Time of Disposition: 16:59 Disposition: Refer to Observation Clinical Impression: Dehydration, Gastroenteritis Abdominal pain Qualifiers: Abdominal location: generalized Qualified Code(s): R10.84 - Generalized abdominal pain - Discharge Information Referrals: PCP,Unknown [Primary Care Provider] - - My Orders Last 24 Hours: My Active Orders 11/04/17 14:57 Abdomen Pelvis w Cont [CT] Stat Cervical Spine wo Cont [CT] Stat Head wo Cont [CT] Stat CULTURE STOOL + CAMPY+SHIGATOX [RM] Stat 11/04/17 16:47 Sodium Chloride 0.9% [Normal Saline] 1,000 ml IV STAT 11/04/17 16:51 CDIFF TOX A+B [OP] Stat UA W/MICROSCOPIC [URIN] Stat - Assessment/Plan Last 24 Hours: My Active Orders 11/04/17 14:57 Abdomen Pelvis w Cont [CT] Stat Cervical Spine wo Cont [CT] Stat Head wo Cont [CT] Stat CULTURE STOOL + CAMPY+SHIGATOX [RM] Stat 11/04/17 16:47 Sodium Chloride 0.9% [Normal Saline] 1,000 ml IV STAT 11/04/17 16:51 CDIFF TOX A+B [OP] Stat UA W/MICROSCOPIC [URIN] Stat
[2017-11-04] MEDS ORDERED: Morphine 2 MG/ML Syringe IVPUSH ONE ×2 (16:18→21:19)
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
[2017-11-04] MEDS ORDERED: SUMAtriptan 50 MG Tab PO PRN (18:20)
[2017-11-04] MEDS: Enoxaparin 40 MG/0.4 ML Syringe SUBCUT SCH (18:35)
[2017-11-04] MEDS: Ondansetron 4 MG/2 ML SDV IVPUSH PRN (18:39)
[2017-11-04] MEDS: Pantoprazole 40 MG Vial IVPUSH SCH (20:42)
[2017-11-04] MEDS ORDERED: Gabapentin 300 MG Cap PO SCH (21:00)
[2017-11-04] MEDS ORDERED: Gabapentin 300 MG Cap PO ONE (21:00)
[2017-11-04] MEDS ORDERED: Amitriptyline 25 MG Tab PO SCH (21:00)
[2017-11-04] MEDS ORDERED: traZODone 50 MG Tab PO PRN (21:00)
[2017-11-04] MEDS ORDERED: Venlafaxine 75 MG Cap.ER PO SCH (21:45)
[2017-11-05] MEDS: Ondansetron 4 MG/2 ML SDV IVPUSH PRN ×2 (00:05→04:09)
[2017-11-05] MEDS ORDERED: Acetaminophen 325 MG Tab PO PRN (02:44)
[2017-11-05] MEDS: Levothyroxine 75 MCG Tab PO SCH (06:53)
[2017-11-05] MEDS: Enoxaparin 40 MG/0.4 ML Syringe SUBCUT SCH (08:23)
[2017-11-05] MEDS: Gabapentin 300 MG Cap PO SCH ×2 (08:25→20:08)
[2017-11-05] MEDS: Pantoprazole 40 MG Vial IVPUSH SCH ×2 (08:33→20:08)
[2017-11-05] MEDS ORDERED: Meperidine PF 50 MG/ML Syringe IM PRN (09:09)
--- NOTE | 2017-11-05 09:19 | PCM.PN ---
- Review of Systems Systems Review Comment:: patient reports migraine headache, she did eat jello this morning. - Patient Data Vitals - Most Recent: Last Vital Signs Temp 36.6 C 11/05/17 04:00 Pulse 95 11/05/17 04:00 Resp 20 11/05/17 04:00 BP 132/70 11/05/17 04:00 Pulse Ox 100 11/05/17 04:00 Weight - Most Recent: 78.018 kg I&O - Last 24 Hours: Intake & Output 11/04/17 11/05/17 11/05/17 22:59 06:59 14:59 Intake Total 1620 Output Total 300 Balance 1320 Lab Results Last 24 Hours: Laboratory Results - last 24 hr 11/04/17 11/05/17 11/05/17 Range/Units 22:05 05:28 05:28 WBC 9.90 (4.0-11.0) K/uL RBC 4.08 L (4.30-5.90) M/uL Hgb 12.0 (12.0-16.0) g/dL Hct 37.6 (36.0-46.0) % MCV 92.2 (80.0-98.0) fL MCH 29.4 (27.0-32.0) pg MCHC 31.9 (31.0-37.0) g/dL RDW Std Deviation 47.7 (28.0-62.0) fl RDW Coeff of Nicky 14 (11.0-15.0) % Plt Count 318 (150-400) K/uL MPV 9.20 (7.40-12.00) fL Nucleated RBC % 0.0 /100WBC Nucleated RBCs # 0 K/uL Sodium 136 (136-146) mmol/L Potassium 3.9 (3.5-5.1) mmol/L Chloride 107 (98-110) mmol/L Carbon Dioxide 19 L (21-31) mmol/L BUN 25 H (6.0-23.0) mg/dL Creatinine 1.3 (0.6-1.5) mg/dL Est Cr Clr Drug Dosing 40.89 mL/min Estimated GFR (MDRD) 41.6 ml/min Glucose 106 (60-110) mg/dL Calcium 9.1 (8.8-10.8) mg/dL Urine Color DARK YELLOW Urine Appearance SLT CLOUDY Urine pH 5.5 (5.0-8.0) Ur Specific [place] >= 1.030 (1.001-1.035) Urine Protein TRACE (NEGATIVE) mg/dL Urine Glucose (UA) NEGATIVE (NEGATIVE) mg/dL Urine Ketones TRACE H (NEGATIVE) mg/dL Urine Occult Blood NEGATIVE (NEGATIVE) Urine Nitrite NEGATIVE (NEGATIVE) Urine Bilirubin MODERATE H (NEGATIVE) Urine Ictotest NEGATIVE Urine Urobilinogen 0.2 (<2.0) EU/dL Ur Leukocyte Esterase NEGATIVE (NEGATIVE) Urine RBC 0-2 (0-2/HPF) Urine WBC 2-4 (0-5/HPF) Ur Epithelial Cells OCCASIONAL (NONE-FEW) Calcium Oxalate Crystal FEW (NEGATIVE) Amorphous Sediment FEW (NEGATIVE) Urine Bacteria FEW (NEGATIVE) Max Results Last 24 Hours: Microbiology 11/04/17 20:00 Influenza Type A Antigen Screen - Final Nasopharyngeal Swab - Nare, Right NEGATIVE INFLUENZA A VIRUS AG Influenza Type B Antigen Screen - Final NEGATIVE INFLUENZA B VIRUS AG Med Orders - Current: Current Medications Acetaminophen (Tylenol) 650 mg PO Q4H PRN PRN Reason: Headache/Pain Last Admin: 11/05/17 04:08 Dose: 650 mg Enoxaparin Sodium (Lovenox) 40 mg SUBCUT DAILY [facility] Last Admin: 11/05/17 08:23 Dose: 40 mg Gabapentin (Neurontin) 600 mg PO BID [facility] Last Admin: 11/05/17 08:25 Dose: 600 mg Sodium Chloride (Normal Saline) 1,000 mls @ 125 mls/hr IV ASDIRECTED [facility] Levothyroxine Sodium (Levothyroxine) 75 mcg PO DAILY@0700 [facility] Last Admin: 11/05/17 06:53 Dose: 75 mcg Meperidine HCl (Demerol) 25 mg IM ONETIME PRN PRN Reason: migraine Metoclopramide HCl (Reglan) 10 mg IVPUSH Q6H PRN PRN Reason: migraine Ondansetron HCl (Zofran) 4 mg IVPUSH Q4H PRN PRN Reason: Nausea/Vomiting Last Admin: 11/05/17 04:09 Dose: 4 mg Pantoprazole Sodium (Protonix Iv) 40 mg IVPUSH Q12HR [facility] Last Admin: 11/05/17 08:33 Dose: 40 mg Trazodone HCl (Trazodone) 50 mg PO BEDTIME PRN PRN Reason: Insomnia Last Admin: 11/05/17 00:07 Dose: 50 mg Venlafaxine HCl (Effexor Xr) 225 mg PO BEDTIME [facility] Last Admin: 11/04/17 21:52 Dose: 225 mg Discontinued Medications Amitriptyline HCl (Elavil) 25 mg PO BEDTIME [facility] Last Admin: 11/04/17 21:12 Dose: Not Given Gabapentin (Neurontin) 600 mg PO BID [facility] Last Admin: 11/05/17 03:39 Dose: Not Given Gabapentin (Neurontin) 600 mg PO ONETIME ONE Stop: 11/04/17 21:01 Last Admin: 11/04/17 20:42 Dose: 600 mg Sodium Chloride (Normal Saline) 1,000 mls @ 999 mls/hr IV STAT ONE Stop: 11/04/17 15:57 Last Admin: 11/04/17 15:03 Dose: 999 mls/hr Sodium Chloride (Normal Saline) 1,000 mls @ 100 mls/hr IV STAT ONE Stop: 11/05/17 02:46 Last Admin: 11/04/17 16:57 Dose: 100 mls/hr Ketorolac Tromethamine (Toradol) 30 mg IVPUSH ONETIME ONE Stop: 11/04/17 14:58 Last Admin: 11/04/17 15:04 Dose: 30 mg Morphine Sulfate (Morphine) 2 mg IVPUSH ONETIME ONE Stop: 11/04/17 16:19 Last Admin: 11/04/17 16:23 Dose: 2 mg Morphine Sulfate (Morphine) 2 mg IVPUSH ONETIME ONE Stop: 11/04/17 21:20 Last Admin: 11/04/17 21:54 Dose: 2 mg Ondansetron HCl (Zofran) 4 mg IVPUSH ONETIME ONE Stop: 11/04/17 14:58 Last Admin: 11/04/17 15:03 Dose: 4 mg Sumatriptan Succinate (Imitrex) 50 mg PO Q2H PRN PRN Reason: Headache Last Admin: 11/04/17 23:54 Dose: 50 mg - Exam General: Alert, Oriented HEENT: Mucous Membr. Moist/[place] Neck: Supple Lungs: Clear to Auscultation, Normal Respiratory Effort Cardiovascular: Regular Rate, Regular Rhythm GI/Abdominal Exam: Soft, Non-Tender, No Distention Extremities: No Pedal Edema Skin: Warm, Dry, Intact Neurological: No New Focal Deficit - Problem List Review Problem List Initiated/Reviewed/Updated: Yes - My Orders Last 24 Hours: My Active Orders 11/04/17 21:45 Venlafaxine [Effexor XR] 225 mg PO BEDTIME 11/05/17 02:44 Acetaminophen [Tylenol] 650 mg PO Q4H PRN 11/05/17 09:05 Metoclopramide [Reglan] 10 mg IVPUSH Q6H PRN 11/05/17 09:09 Meperidine [Demerol] 25 mg IM ONETIME PRN 11/05/17 09:15 Sodium Chloride 0.9% @ 125 MLS/HR (1,000ml) Sodium Chloride 0.9% [Normal Saline ] 1,000 ml IV ASDIRECTED - Plan Plan:: 62 yo female admitted with acute kidney injury due to dehydration and gastritis 1.CIERA resolving, will continue IV fluids 2.Gastritis, improving will advance diet 3.Migraine, tylenol, reglan, will try demerol as patient reports this has aborted her headache in past.
[2017-11-05] MEDS: Sodium Chloride 0.9% 1,000 ML IV SCH ×2 (10:49→18:26)
[2017-11-05] MEDS: Metoclopramide 10 MG/2 ML SDV IVPUSH PRN (18:44)
[2017-11-05] MEDS ORDERED: Venlafaxine 75 MG Cap.ER PO SCH (21:00)
[2017-11-06] MEDS: Sodium Chloride 0.9% 1,000 ML IV SCH (02:36)
[2017-11-06] MEDS: Metoclopramide 10 MG/2 ML SDV IVPUSH PRN (03:42)
[2017-11-06] MEDS: Levothyroxine 75 MCG Tab PO SCH (06:06)
[2017-11-06 06:28] LABS: CHLORIDE,CL 112 mmol/L (98-110); SODIUM,NA 141 mmol/L (136-146)
[2017-11-06] MEDS: Enoxaparin 40 MG/0.4 ML Syringe SUBCUT SCH (08:25)
[2017-11-06] MEDS: Gabapentin 300 MG Cap PO SCH (08:26)
[2017-11-06] MEDS: Pantoprazole 40 MG Vial IVPUSH SCH (08:26)
[2017-11-06 11:48] VITALS: BP 131/70
--- NOTE | 2017-11-06 14:30 | CT ---
EXAM DATE: 11/04/17 PATIENT'S AGE: 62 Patient: CLAUDETTE WHITFIELD Facility: [place], [place] Site . Site : 1955 Study: CT Spine Cervical [id number] 4:33:12 PM Ordering Physician: Doctor Wu Final Report: INDICATION: Trauma. Patient fell. TECHNIQUE: A CT volumetric acquisition was performed of the abdomen and pelvis without IV contrast. FINDINGS: Osteoarthritic changes are evident at the articulation of the odontoid process and anterior arch of C1. Cervical vertebra are anatomically aligned. The patient has had a prior discectomy and anterior fusion of C5, C6 and C7. There is a bone graft within the fused disc spaces and anteriorly there is a compression plate and screw device. There is mild degenerative disc space narrowing below the level of fusion at C7-T1. The cervical facet joints show mild narrowing and hypertrophic spurring but there is no evidence of malalignment of the facet joints. There is no evidence of an epidural or paraspinal soft tissue hematoma. The lung apices are clear. IMPRESSION: No evidence of acute fracture or dislocation within the cervical spine. Please note that all CT scans at this facility use dose modulation, iterative reconstruction, and/or weight-based dosing when appropriate to reduce radiation dose to as low as reasonably achievable. Dictated by Keegan Castro MD @ Nov 04 2017 4:40PM (Electronic Signature) Report Signed by Proxy. WOODY
--- NOTE | 2017-11-06 14:30 | CT ---
EXAM DATE: 11/04/17 PATIENT'S AGE: 62 Patient: CLAUDETTE WHITFIELD Facility: [place], [place] Site . Site : 1955 Study: CT Head [id number] 4:25:51 PM Ordering Physician: Doctor Wu Final Report: INDICATION: fell INDICATION: Fall. TECHNIQUE: CT head without contrast. Coronal/sagittal reconstruction images. COMPARISON: MRI of the brain 08/02/2017. FINDINGS: CSF spaces: Within normal limits for age. Brain parenchyma: The pardo-white differentiation is normal. No sign of mass, hemorrhage, or midline shift. Skull base and calvarium: The visualized paranasal sinuses and mastoid air cells are clear. The visualized orbits are grossly unremarkable. No skull fractures. IMPRESSION: 1. There is no acute intracranial hemorrhage, shift of midline structures, or mass effect. 2. Calvaria are intact. Dictated by Dav Brooks MD @ 11/04/2017 4:33:17 PM Dictated by: Dav Brooks MD @ 11/04/2017 16:33:31 (Electronic Signature) Report Signed by Proxy. [facility]IN[facility] INSANERachele
--- NOTE | 2017-11-06 14:31 | CT ---
EXAM DATE: 11/04/17 PATIENT'S AGE: 62 Patient: CLAUDETTE WHITFIELD Facility: [place], [place] Site . Site : 1955 Study: CT Abdomen/Pelvis [id number]/[id number]/2018 4:39:57 PM Ordering Physician: Doctor Wu Final Report: INDICATION: Fall. TECHNIQUE: CT scan abdomen and pelvis. No intravenous contrast. FINDINGS: Liver and spleen: Intact. No mass or obvious lacerations. Gallbladder: Calcification. Kidneys: Intact. Renal cysts. No hydronephrosis. Left renal cyst measuring 2.0 cm. Retroperitoneum: No hematoma. No adenopathy. Normal caliber aorta. Minimal atherosclerotic plaque. GI tract: Scattered diverticula in the colon. No obstruction. No wall thickening. Pelvis: No free fluid. Urinary bladder: Decompressed. Very small calcification in the midline which could be at the bladder base on series 3 image 143. Skeletal: No fractures are seen. Lumbar disc degeneration. Vacuum disk formation. Lung bases: Clear. IMPRESSION: 1. No visualized intra-abdominal solid organ or other significant injury. 2. Small gallbladder calcification in the midline uncertain significance correlate with symptoms. Please note that all CT scans at this facility use dose modulation, iterative reconstruction, and/or weight-based dosing when appropriate to reduce radiation dose to as low as reasonably achievable. Dictated by Vipin Pyle MD @ Nov 04 2017 4:42PM (Electronic Signature) Report Signed by Proxy. [facility]PITALRachele
--- NOTE | 2017-11-06 14:33 | CR ---
EXAM DATE: 11/04/17 PATIENT'S AGE: 62 Patient: CLAUDETTE WHITFIELD Facility: [place], [place] Site . Site : 1955 Study: XRay Chest [id number]/3/2018 7:31:58 PM Ordering Physician: Courtney Champion Final Report: INDICATION: Chest pain. Shortness breath. COMPARISON: none TECHNIQUE: Two view chest. FINDINGS: The lungs are clear. There is no evidence pneumothorax. The heart, mediastinum and pulmonary vessels are of normal size. There is no evidence of pleural fluid. IMPRESSION: Negative chest. Dictated by Keegan Castro MD @ Nov 04 2017 7:56PM (Electronic Signature) Report Signed by Proxy. [facility]
--- NOTE | 2017-11-06 14:47 | PCM.DCSUM1 ---
<Antonino Tiwari - Last Filed: 11/06/17 14:44> Discharge Summary - Hospital Course Free Text/Narrative:: Admission date: November 04, 2017 Discharge date: November 06, 2017 Admission diagnosis: #1. Intractable nausea, vomiting, #2. Diarrhea #3. Abdominal pain #4. Migraine #5. clinical dehydration #6. Hyperkalemia #7. Acute Kidney Injury #8. Leukocytosis #9. Hx of hypothyroidism, fibromyalgia Discharge diagnosis: #1. Acute kidney injury secondary to dehydration, gastritis that has resolved #2. History of hypothyroidism, fibromyalgia, migraine Hospital course: 62-year-old female with the above-mentioned history who presented for the above-mentioned reasons to the emergency department. She was admitted for observation, IV fluid resuscitation for her acute kidney injury. Patient also received a multitude of medications for her ongoing persistent migraine. It appeared that the Reglan helped with both her migraine and her nausea. The day of discharge, the patient stated that her migraine, nausea, abdominal pain has all subsided. Laboratory results are also reassuring. She was discharged home on a prescription for Reglan. She is to follow-up with her primary care provider. She is advised to return if symptoms reoccur. - Discharge Data Discharge Date: 11/06/17 Discharge Disposition: Home, Self-Care 01 Condition: Fair - Patient Summary/Data Consults: Consultations 11/04/17 17:52 PT Evaluation and Treatment [CONS] Routine - Patient Instructions Diet: Usual Diet as Tolerated Notify Provider of: Fever, Increased Pain, Swelling and Redness, Nausea and/or Vomiting - Discharge Plan Prescriptions/Med Rec: Metoclopramide [Reglan] 5 mg PO Q6H PRN 7 Days #28 tab PRN Reason: headache Home Medications: Home Meds Levothyroxine [Synthroid] 75 mcg PO DAILY 06/18/14 [History] Pantoprazole [ProTONIX] 40 mg PO BEDTIME 06/18/14 [History] Venlafaxine [Effexor XR] 300 mg PO DAILY 06/18/14 [History] traZODone 50 mg PO BEDTIME PRN 05/21/16 [History] Gabapentin [Neurontin] 600 mg PO BID 04/18/17 [History] Aspirin 81 mg CHEW DAILY 05/15/17 [History] Biotin 1,000 mcg PO DAILY 05/15/17 [History] Calcium Citrate [Calcitrate (190 MG Calcium)] 2 tab PO BID 05/15/17 [History] Ibuprofen 600 mg PO ASDIRECTED PRN 05/15/17 [History] Multivitamin [Multivitamins] 1 tab PO DAILY 05/15/17 [History] Vitamin B Complex [Super B-50 Complex] 1 tab PO DAILY 05/15/17 [History] Vitamin E 400 units PO DAILY 05/15/17 [History] Lutein 20 mg PO DAILY 05/16/17 [History] ALPRAZolam [Xanax] 0.25 mg PO Q12HR PRN 11/05/17 [History] Metoclopramide [Reglan] 5 mg PO Q6H PRN 7 Days #28 tab 11/06/17 [Rx] Patient Handouts: Metoclopramide tablets, Dehydration, Adult, [id number] Referrals: Pipe Cardenas MD [Physician] - 11/14/17 2:45 pm - Discharge Summary/Plan Comment Discharge Summary/Plan Comment: Admission date: November 04, 2017 Discharge date: November 06, 2017 Admission diagnosis: #1. Intractable nausea, vomiting, #2. Diarrhea #3. Abdominal pain #4. Migraine #5. clinical dehydration #6. Hyperkalemia #7. Acute Kidney Injury #8. Leukocytosis #9. Hx of hypothyroidism, fibromyalgia Discharge diagnosis: #1. Acute kidney injury secondary to dehydration, gastritis that has resolved #2. History of hypothyroidism, fibromyalgia, migraine Hospital course: 62-year-old female with the above-mentioned history who presented for the above-mentioned reasons to the emergency department. She was admitted for observation, IV fluid resuscitation for her acute kidney injury. Patient also received a multitude of medications for her ongoing persistent migraine. It appeared that the Reglan helped with both her migraine and her nausea. The day of discharge, the patient stated that her migraine, nausea, abdominal pain has all subsided. Laboratory results are also reassuring. She was discharged home on a prescription for Reglan. She is to follow-up with her primary care provider. She is advised to return if symptoms reoccur. - Patient Data Vitals - Most Recent: Last Vital Signs Temp 36.4 C 11/06/17 11:47 Pulse 87 11/06/17 11:47 Resp 20 11/06/17 11:47 BP 131/70 11/06/17 11:47 Pulse Ox 94 L 11/06/17 11:47 Weight - Most Recent: 78.018 kg I&O - Last 24 hours: Intake & Output 11/05/17 11/06/17 11/06/17 22:59 06:59 14:59 Intake Total 1157 790 Output Total 650 1500 Balance 507 -710 Lab Results - Last 24 hrs: Laboratory Results - last 24 hr 11/06/17 11/06/17 Range/Units 05:45 05:45 WBC 6.27 (4.0-11.0) K/uL RBC 3.98 L (4.30-5.90) M/uL Hgb 11.7 L (12.0-16.0) g/dL Hct 37.0 (36.0-46.0) % MCV 93.0 (80.0-98.0) fL MCH 29.4 (27.0-32.0) pg MCHC 31.6 (31.0-37.0) g/dL RDW Std Deviation 47.7 (28.0-62.0) fl RDW Coeff of Nicky 14 (11.0-15.0) % Plt Count 290 (150-400) K/uL MPV 9.10 (7.40-12.00) fL Neut % (Auto) 47.0 L (48.0-80.0) % Lymph % (Auto) 33.5 (16.0-40.0) % Smith % (Auto) 9.1 (0.0-15.0) % Eos % (Auto) 9.9 H (0.0-7.0) % Baso % (Auto) 0.5 (0.0-1.5) % Neut # (Auto) 3.0 (1.4-5.7) K/uL Lymph # (Auto) 2.1 (0.6-2.4) K/uL Smith # (Auto) 0.6 (0.0-0.8) K/uL Eos # (Auto) 0.6 (0.0-0.7) K/uL Baso # (Auto) 0.0 (0.0-0.1) K/uL Nucleated RBC % 0.0 /100WBC Nucleated RBCs # 0 K/uL Sodium 141 (136-146) mmol/L Potassium 4.6 (3.5-5.1) mmol/L Chloride 112 H (98-110) mmol/L Carbon Dioxide 22 (21-31) mmol/L BUN 15 (6.0-23.0) mg/dL Creatinine 0.9 (0.6-1.5) mg/dL Est Cr Clr Drug Dosing 59.07 mL/min Estimated GFR (MDRD) > 60.0 ml/min Glucose 87 (60-110) mg/dL Calcium 9.3 (8.8-10.8) mg/dL Med Orders - Current: Current Medications Discontinued Medications Acetaminophen (Tylenol) 650 mg PO Q4H PRN PRN Reason: Headache/Pain Last Admin: 11/05/17 04:08 Dose: 650 mg Amitriptyline HCl (Elavil) 25 mg PO BEDTIME [facility] Last Admin: 11/04/17 21:12 Dose: Not Given Enoxaparin Sodium (Lovenox) 40 mg SUBCUT DAILY [facility] Last Admin: 11/06/17 08:25 Dose: 40 mg Gabapentin (Neurontin) 600 mg PO BID [facility] Last Admin: 11/05/17 03:39 Dose: Not Given Gabapentin (Neurontin) 600 mg PO ONETIME ONE Stop: 11/04/17 21:01 Last Admin: 11/04/17 20:42 Dose: 600 mg Gabapentin (Neurontin) 600 mg PO BID [facility] Last Admin: 11/06/17 08:26 Dose: 600 mg Sodium Chloride (Normal Saline) 1,000 mls @ 999 mls/hr IV STAT ONE Stop: 11/04/17 15:57 Last Admin: 11/04/17 15:03 Dose: 999 mls/hr Sodium Chloride (Normal Saline) 1,000 mls @ 100 mls/hr IV STAT ONE Stop: 11/05/17 02:46 Last Admin: 11/04/17 16:57 Dose: 100 mls/hr Sodium Chloride (Normal Saline) 1,000 mls @ 125 mls/hr IV ASDIRECTED [facility] Last Admin: 11/06/17 02:36 Dose: 125 mls/hr Ketorolac Tromethamine (Toradol) 30 mg IVPUSH ONETIME ONE Stop: 11/04/17 14:58 Last Admin: 11/04/17 15:04 Dose: 30 mg Levothyroxine Sodium (Levothyroxine) 75 mcg PO DAILY@0700 [facility] Last Admin: 11/06/17 06:06 Dose: 75 mcg Meperidine HCl (Demerol) 25 mg IM ONETIME PRN PRN Reason: migraine Last Admin: 11/05/17 10:40 Dose: 25 mg Metoclopramide HCl (Reglan) 10 mg IVPUSH Q6H PRN PRN Reason: migraine Last Admin: 11/06/17 03:42 Dose: 10 mg Morphine Sulfate (Morphine) 2 mg IVPUSH ONETIME ONE Stop: 11/04/17 16:19 Last Admin: 11/04/17 16:23 Dose: 2 mg Morphine Sulfate (Morphine) 2 mg IVPUSH ONETIME ONE Stop: 11/04/17 21:20 Last Admin: 11/04/17 21:54 Dose: 2 mg Ondansetron HCl (Zofran) 4 mg IVPUSH ONETIME ONE Stop: 11/04/17 14:58 Last Admin: 11/04/17 15:03 Dose: 4 mg Ondansetron HCl (Zofran) 4 mg IVPUSH Q4H PRN PRN Reason: Nausea/Vomiting Last Admin: 11/05/17 04:09 Dose: 4 mg Pantoprazole Sodium (Protonix Iv) 40 mg IVPUSH Q12HR [facility] Last Admin: 11/06/17 08:26 Dose: 40 mg Sumatriptan Succinate (Imitrex) 50 mg PO Q2H PRN PRN Reason: Headache Last Admin: 11/04/17 23:54 Dose: 50 mg Trazodone HCl (Trazodone) 50 mg PO BEDTIME PRN PRN Reason: Insomnia Last Admin: 11/05/17 00:07 Dose: 50 mg Venlafaxine HCl (Effexor Xr) 225 mg PO BEDTIME [facility] Last Admin: 11/04/17 21:52 Dose: 225 mg Venlafaxine HCl (Effexor Xr) 300 mg PO BEDTIME [facility] Last Admin: 11/05/17 20:07 Dose: 300 mg *Q Meaningful Use (DIS) - VTE *Q VTE Criteria *Q: - Stroke *Q Stroke Criteria *Q: - AMI *Q AMI Criteria *Q: <Akira Valdez - Last Filed: 11/07/17 17:56> Discharge Summary - Patient Summary/Data Consults: Consultations 02/03/18 17:52 PT Evaluation and Treatment [CONS] Routine - Patient Data Vitals - Most Recent: Last Vital Signs Temp 36.4 C 11/06/17 11:47 Pulse 87 11/06/17 11:47 Resp 20 11/06/17 11:47 BP 131/70 11/06/17 11:47 Pulse Ox 94 L 11/06/17 11:47 Med Orders - Current: Current Medications Discontinued Medications Acetaminophen (Tylenol) 650 mg PO Q4H PRN PRN Reason: Headache/Pain Last Admin: 11/05/17 04:08 Dose: 650 mg Amitriptyline HCl (Elavil) 25 mg PO BEDTIME [facility] Last Admin: 11/04/17 21:12 Dose: Not Given Enoxaparin Sodium (Lovenox) 40 mg SUBCUT DAILY [facility] Last Admin: 11/06/17 08:25 Dose: 40 mg Gabapentin (Neurontin) 600 mg PO BID [facility] Last Admin: 11/05/17 03:39 Dose: Not Given Gabapentin (Neurontin) 600 mg PO ONETIME ONE Stop: 11/04/17 21:01 Last Admin: 11/04/17 20:42 Dose: 600 mg Gabapentin (Neurontin) 600 mg PO BID [facility] Last Admin: 11/06/17 08:26 Dose: 600 mg Sodium Chloride (Normal Saline) 1,000 mls @ 999 mls/hr IV STAT ONE Stop: 11/04/17 15:57 Last Admin: 11/04/17 15:03 Dose: 999 mls/hr Sodium Chloride (Normal Saline) 1,000 mls @ 100 mls/hr IV STAT ONE Stop: 11/05/17 02:46 Last Admin: 11/04/17 16:57 Dose: 100 mls/hr Sodium Chloride (Normal Saline) 1,000 mls @ 125 mls/hr IV ASDIRECTED [facility] Last Admin: 11/06/17 02:36 Dose: 125 mls/hr Ketorolac Tromethamine (Toradol) 30 mg IVPUSH ONETIME ONE Stop: 11/04/17 14:58 Last Admin: 11/04/17 15:04 Dose: 30 mg Levothyroxine Sodium (Levothyroxine) 75 mcg PO DAILY@0700 [facility] Last Admin: 11/06/17 06:06 Dose: 75 mcg Meperidine HCl (Demerol) 25 mg IM ONETIME PRN PRN Reason: migraine Last Admin: 11/05/17 10:40 Dose: 25 mg Metoclopramide HCl (Reglan) 10 mg IVPUSH Q6H PRN PRN Reason: migraine Last Admin: 11/06/17 03:42 Dose: 10 mg Morphine Sulfate (Morphine) 2 mg IVPUSH ONETIME ONE Stop: 11/04/17 16:19 Last Admin: 11/04/17 16:23 Dose: 2 mg Morphine Sulfate (Morphine) 2 mg IVPUSH ONETIME ONE Stop: 11/04/17 21:20 Last Admin: 11/04/17 21:54 Dose: 2 mg Ondansetron HCl (Zofran) 4 mg IVPUSH ONETIME ONE Stop: 11/04/17 14:58 Last Admin: 11/04/17 15:03 Dose: 4 mg Ondansetron HCl (Zofran) 4 mg IVPUSH Q4H PRN PRN Reason: Nausea/Vomiting Last Admin: 11/05/17 04:09 Dose: 4 mg Pantoprazole Sodium (Protonix Iv) 40 mg IVPUSH Q12HR [facility] Last Admin: 11/06/17 08:26 Dose: 40 mg Sumatriptan Succinate (Imitrex) 50 mg PO Q2H PRN PRN Reason: Headache Last Admin: 11/04/17 23:54 Dose: 50 mg Trazodone HCl (Trazodone) 50 mg PO BEDTIME PRN PRN Reason: Insomnia Last Admin: 11/05/17 00:07 Dose: 50 mg Venlafaxine HCl (Effexor Xr) 225 mg PO BEDTIME [facility] Last Admin: 11/04/17 21:52 Dose: 225 mg Venlafaxine HCl (Effexor Xr) 300 mg PO BEDTIME [facility] Last Admin: 11/05/17 20:07 Dose: 300 mg *Q Meaningful Use (DIS) - VTE *Q VTE Criteria *Q: - Stroke *Q Stroke Criteria *Q: - AMI *Q AMI Criteria *Q: - Free Text/Narrative Note: I have examined the patient. I have discussed findings and treatment plan with resident. I agree with the assessment and plan outlined in the following resident's note.
--- NOTE | 2017-11-08 14:01 | ECHO ---
EXAM DATE: 11/04/17 PATIENT'S AGE: 62 The echocardiogram report can be seen in this patient's EMR (Electronic Medical Record) in the Reports section. The report has also been scanned into PACs. WOODY
== END 2017-11-06 12:47 | disposition home or self-care (01) ==
LOC: MW.ED 14:55 → MW.MS 16:59
PROVIDERS: ADMIT Internal Medicine; ATTEND Internal Medicine
DX: E86.0 Dehydration (principal); K29.70 Gastritis, unspecified, without bleeding; N17.9 Acute kidney failure, unspecified; E03.9 Hypothyroidism, unspecified; M79.7 Fibromyalgia; G43.909 Migraine, unspecified, not intractable, without status migrainosus; R19.7 Diarrhea, unspecified; E87.5 Hyperkalemia; D72.829 Elevated white blood cell count, unspecified; K21.9 Gastro-esophageal reflux disease without esophagitis; M19.90 Unspecified osteoarthritis, unspecified site; F32.9 Major depressive disorder, single episode, unspecified; M54.2 Cervicalgia; M54.5 Low back pain; Z87.11 Personal history of peptic ulcer disease; Z79.82 Long term (current) use of aspirin; Z79.51 Long term (current) use of inhaled steroids; Z79.899 Other long term (current) drug therapy; Z88.0 Allergy status to penicillin; Z88.8 Allergy status to other drugs, medicaments and biological substances; Z98.1 Arthrodesis status; Z90.49 Acquired absence of other specified parts of digestive tract; Z90.711 Acquired absence of uterus with remaining cervical stump; Z98.890 Other specified postprocedural states; W19.XXXA Unspecified fall, initial encounter
CPT/HCPCS: 36415; 70450; 71046; 72125; 74176; 80048; 80053; 81001; 82550; 83690; 85025; 85027; 87804; 93005; 93306; 96361; 96374; 96375; 97161; 99285; A9270; C9113; J1650; J1885; J2175; J2270; J2405; J2765; J7040; 96372; 96376; 99284; G0378

== ENCOUNTER 2018-03-31 15:20 | Emergency (ER) | payer MEDICAID ==
[2018-03-31] MEDS ORDERED: Diphtheria,Pertussis(Acell),Tetanus Vaccine 0.5 ML Syringe IM ONE (16:59)
--- NOTE | 2018-03-31 17:01 | EDM.PDOC ---
ED HPI GENERAL MEDICAL PROBLEM - General Chief Complaint: Skin Complaint Stated Complaint: CUT TO RT VIDHI Time Seen by Provider: 03/31/18 16:55 Source of Information: Reports: Patient History Limitations: Reports: No Limitations - History of Present Illness INITIAL COMMENTS - FREE TEXT/NARRATIVE: HISTORY AND PHYSICAL: 62-year-old female who presents with right lower leg injury History of Present Illness: []1 week ago her dog took off and the wire cable wrapped around her ankle causing an abrasion made her fall She's not remember when her last tetanus vaccine was given She complains of pain to that ankle on the right Review of Systems: As per history of present illness and below otherwise all systems reviewed and negative. Past medical history: As per history of present illness and as reviewed below otherwise noncontributory. Surgical history: As per history of present illness and as reviewed below otherwise noncontributory. Social history: No reported history of drug or alcohol abuse. Family history: As per history of present illness and as reviewed below otherwise noncontributory. Physical exam: Alert and oriented female in an age-appropriate answering questions without any shortness of breath. She is nontoxic in appearance. HEENT: Atraumatic, normocehpalic, pupils reactive, negative for conjunctival pallor or scleral icterus, mucous membranes moist, throat clear, neck supple, nontender, trachea midline. Lungs: Clear to auscultation, breath sounds equal bilaterally, chest non tender. Heart: S1S2, regular, negative for clicks, rubs, or JVD. Abdomen: Soft, nondistended, nontender. Negative for masses or hepatossplenmegaly. Negative for costovertebral tenderness. Pelvis: Stable nontender. Genitourinary: Deferred. Rectal: Deferred Extremities: Small burn type laceration noted to the inner right lower leg medially. Bruising is noted as well to the left midcalf , negative for cords or calf pain. Neurovascular unremarkable. Neuro: Awake, alert, oriented. Cranial nerves II through XII unremarkable. Cerebellum unremarkable. Motor and sensory unremarkable throughout. Exam nonfocal. Diagnostics: [] Therapeutics: []Tetanus vaccine Charanjit wrap Impression: []Minor injury right lower leg Plan: []Discharged Keflex 500 3 times a day 5 days Follow-up with primary care provider Worsening symptoms will need to return for further evaluation Definitive disposition and diagnosis as appropriate pending reevaluation and review of above. Onset: Sudden Duration: Day(s): Location: Reports: Lower Extremity, Right Quality: Reports: Ache Severity: Moderate Improves with: Reports: None Worsens with: Reports: None Associated Symptoms: Reports: No Other Symptoms Right Ankle Pain Score (Numeric/FACES): 7 - Related Data Allergies Allergy/AdvReac Type Severity Reaction Status Date / Time erythromycin base Allergy Nausea and Verified 03/31/18 15:52 [Erythromycin Base] Vomiting Penicillins Allergy Rash Verified 03/31/18 15:52 Home Meds: Home Meds Levothyroxine [Synthroid] 75 mcg PO DAILY 06/18/14 [History] Pantoprazole [ProTONIX] 40 mg PO BEDTIME 06/18/14 [History] Venlafaxine [Effexor XR] 300 mg PO DAILY 06/18/14 [History] traZODone 50 mg PO BEDTIME PRN 05/21/16 [History] Gabapentin [Neurontin] 600 mg PO BID 04/18/17 [History] Aspirin 81 mg CHEW DAILY 05/15/17 [History] Biotin 1,000 mcg PO DAILY 05/15/17 [History] Calcium Citrate [Calcitrate (190 MG Calcium)] 2 tab PO BID 05/15/17 [History] Ibuprofen 600 mg PO ASDIRECTED PRN 05/15/17 [History] Multivitamin [Multivitamins] 1 tab PO DAILY 05/15/17 [History] Vitamin B Complex [Super B-50 Complex] 1 tab PO DAILY 05/15/17 [History] Vitamin E 400 units PO DAILY 05/15/17 [History] Lutein 20 mg PO DAILY 05/16/17 [History] ALPRAZolam [Xanax] 0.25 mg PO Q12HR PRN 11/05/17 [History] Ondansetron [Ondansetron ODT] 4 mg PO ASDIRECTED 03/31/18 [History] Past Medical History - Past Health History Medical/Surgical History: Denies Medical/Surgical History HEENT History: Reports: Hard of Hearing Cardiovascular History: Reports: Other (See Below) Other Cardiovascular History: Lower extremity edema Respiratory History: Reports: None Gastrointestinal History: Reports: GERD, PUD Genitourinary History: Reports: None [employer] History: Reports: Musculoskeletal History: Reports: Arthritis, Fracture, Fibromyalgia Other Musculoskeletal History: hx of fx right elbow, wrist and foot Neurological History: Reports: Migraines Psychiatric History: Reports: Depression Endocrine/Metabolic History: Reports: Hypothyroidism Hematologic History: Reports: None, Blood Transfusion(s) Immunologic History: Reports: None Oncologic (Cancer) History: Reports: None Dermatologic History: Reports: None - Infectious Disease History Infectious Disease History: Reports: Chicken Pox, Measles, Mumps - Past Surgical History Head Surgeries/Procedures: Reports: None HEENT Surgical History: Reports: Naso-Sinus Surgery, Tonsillectomy GI Surgical History: Reports: Appendectomy Female Surgical History: Reports: None, Hysterectomy, Oophorectomy Neurological Surgical History: Reports: C-Spine Other Neurological Surgeries/Procedures: fusion of cervical vertebrate, has degenerative disc disease Social & Family History - Family History Family Medical History: Noncontributory Cardiac: Reports: DC - Tobacco Use Smoking Status *Q: Never Smoker - Caffeine Use Caffeine Use: Reports: Coffee - Recreational Drug Use Recreational Drug Use: No ED ROS GENERAL - Review of Systems Review Of Systems: ROS reveals no pertinent complaints other than HPI. ED EXAM, SKIN/RASH Exam: See Below (See dictation) Course - Vital Signs Last Recorded V/S: Last Vital Signs Temp 36.7 C 03/31/18 15:48 Pulse 89 03/31/18 15:48 Resp 18 03/31/18 15:48 BP 118/71 03/31/18 15:48 Pulse Ox 96 03/31/18 15:48 Departure - Departure Time of Disposition: 17:00 Disposition: Home, Self-Care 01 Condition: Good Clinical Impression: Leg abrasion Qualifiers: Encounter type: initial encounter Laterality: right Qualified Code(s): S80.811A - Abrasion, right lower leg, initial encounter - Discharge Information Instructions: Wound Care, Adult, Abrasion, [id number] Referrals: PCP,None [Primary Care Provider] - Additional Instructions: The following information is given to patients seen in the emergency department who are being discharged to home. This information is to outline your options for follow-up care. We provide all patients seen in our emergency department with a follow-up referral. The need for follow-up, as well as the timing and circumstances, are variable depending upon the specifics of your emergency department visit. If you don't have a primary care physician on staff, we will provide you with a referral. We always advise you to contact your personal physician following an emergency department visit to inform them of the circumstance of the visit and for follow-up with them and/or the need for any referrals to a consulting specialist. The emergency department will also refer you to a specialist when appropriate. This referral assures that you have the opportunity for followup care with a specialist. All of these measure are taken in an effort to provide you with optimal care, which includes your followup. Under all circumstances we always encourage you to contact your private physician who remains a resource for coordinating your care. When calling for followup care, please make the office aware that this follow-up is from your recent emergency room visit. If for any reason you are refused follow-up, please contact the [facility] emergency department at and asked to speak to the emergency department charge nurse. Discharged Keflex 500 3 times a day 5 days Follow-up with primary care provider Worsening symptoms will need to return for further evaluation
[2018-03-31 19:20] VITALS: BP 136/77
== END 2018-03-31 17:35 | disposition home or self-care (01) ==
LOC: MW.ED 15:20
DX: S81.811A Laceration without foreign body, right lower leg, initial encounter (principal); Z88.1 Allergy status to other antibiotic agents; Z88.0 Allergy status to penicillin; Z79.899 Other long term (current) drug therapy; Z23 Encounter for immunization; Z79.82 Long term (current) use of aspirin; W24.0XXA Contact with lifting devices, not elsewhere classified, initial encounter
CPT/HCPCS: 90471; 90715; 99282-25

== ENCOUNTER 2019-02-16 11:49 | Emergency (ER) | payer MEDICAID ==
[2019-02-16] MEDS ORDERED: Ketorolac 30 MG/ML SDV IVPUSH ONE (11:54)
[2019-02-16] MEDS ORDERED: Ondansetron 4 MG/2 ML SDV IVPUSH ONE (11:54)
[2019-02-16] MEDS ORDERED: Sodium Chloride 0.9% 1,000 ML IV ONE (11:54)
--- NOTE | 2019-02-16 11:56 | EDM.PDOC ---
ED HPI GENERAL MEDICAL PROBLEM - General Stated Complaint: HEADACHE AND WEAKNESS Time Seen by Provider: 02/16/19 11:55 Source of Information: Reports: Patient - History of Present Illness INITIAL COMMENTS - FREE TEXT/NARRATIVE: HISTORY AND PHYSICAL: History of present illness: [Patient presents with a chief complaint of headache She has several secondary complaints out of nausea vomiting and diarrhea since February 08, she has chronic issue of having to take smaller and smaller bites of food to get them swallowed she has previous upper and lower endoscopy performed through our facility 2 years prior, patient has noted some intermittent abdominal discomfort associated with food and/or nausea vomiting loose stools She is in no distress pain in his right unilateral consistent with previous migraine history she is mildly dehydrated with dry lips/mucosa She has no fever no current vomiting chills sweats no chest pain shortness breath headache dizziness or palpitation no urine symptoms ] Review of systems: As per history of present illness and below otherwise all systems reviewed and negative. Past medical history: As per history of present illness and as reviewed below otherwise noncontributory. Surgical history: As per history of present illness and as reviewed below otherwise noncontributory. Social history: No reported history of drug or alcohol abuse. Family history: As per history of present illness and as reviewed below otherwise noncontributory. Physical exam: HEENT: Atraumatic, normocephalic, pupils reactive, negative for conjunctival pallor or scleral icterus, mucous membranes moist, throat clear, neck supple, nontender, trachea midline. Lungs: Clear to auscultation, breath sounds equal bilaterally, chest nontender. Heart: S1S2, regular, negative for clicks, rubs, or JVD. Abdomen: Soft, nondistended, nontender. Negative for masses or hepatosplenomegaly. Negative for costovertebral tenderness. Pelvis: Stable nontender. Genitourinary: Deferred. Rectal: Deferred. Extremities: Atraumatic, negative for cords or calf pain. Neurovascular unremarkable. Neuro: Awake, alert, oriented. Cranial nerves II through XII unremarkable. Cerebellum unremarkable. Motor and sensory unremarkable throughout. Exam nonfocal. Diagnostics: [CBC CMP UA troponin TSH UA EKG Chest [address] on file within last year ] Therapeutics: [ normal saline Toradol Zofran ER referral for general surgery for consideration of repeat endoscopy due to the requirement of smaller bites of food and difficulty swallowing as well as AB ultrasound or HIDA scan to rule out gallbladder involvement ] Impression: [ headaches Generalized weakness/fatigue Chronic history of baseline] Definitive disposition and diagnosis as appropriate pending reevaluation and review of above. Head Pain Score (Numeric/FACES): 10 - Related Data Allergies Allergy/AdvReac Type Severity Reaction Status Date / Time erythromycin base Allergy Nausea and Verified 02/16/19 12:03 [Erythromycin Base] Vomiting Penicillins Allergy Rash Verified 02/16/19 12:03 Home Meds: Home Meds Levothyroxine [Synthroid] 75 mcg PO DAILY 06/18/14 [History] Pantoprazole [ProTONIX] 40 mg PO BEDTIME 06/18/14 [History] Venlafaxine [Effexor XR] 300 mg PO DAILY 06/18/14 [History] traZODone 50 mg PO BEDTIME PRN 05/21/16 [History] Gabapentin [Neurontin] 600 mg PO BID 04/18/17 [History] Aspirin 81 mg CHEW DAILY 05/15/17 [History] Biotin 1,000 mcg PO DAILY 05/15/17 [History] Calcium Citrate [Calcitrate (190 MG Calcium)] 2 tab PO BID 05/15/17 [History] Ibuprofen 600 mg PO ASDIRECTED PRN 05/15/17 [History] Multivitamin [Multivitamins] 1 tab PO DAILY 05/15/17 [History] Vitamin B Complex [Super B-50 Complex] 1 tab PO DAILY 05/15/17 [History] Vitamin E 400 units PO DAILY 05/15/17 [History] Lutein 20 mg PO DAILY 05/16/17 [History] ALPRAZolam [Xanax] 0.25 mg PO Q12HR PRN 11/05/17 [History] Ondansetron [Ondansetron ODT] 4 mg PO ASDIRECTED 03/31/18 [History] Past Medical History - Past Health History Medical/Surgical History: Denies Medical/Surgical History HEENT History: Reports: Hard of Hearing Cardiovascular History: Reports: Other (See Below) Other Cardiovascular History: Lower extremity edema Respiratory History: Reports: None Gastrointestinal History: Reports: GERD, PUD Genitourinary History: Reports: None [employer] History: Reports: Musculoskeletal History: Reports: Arthritis, Fracture, Fibromyalgia Other Musculoskeletal History: hx of fx right elbow, wrist and foot Neurological History: Reports: Migraines Psychiatric History: Reports: Depression Endocrine/Metabolic History: Reports: Hypothyroidism Hematologic History: Reports: None, Blood Transfusion(s) Immunologic History: Reports: None Oncologic (Cancer) History: Reports: None Dermatologic History: Reports: None - Infectious Disease History Infectious Disease History: Reports: Chicken Pox, Measles, Mumps - Past Surgical History Head Surgeries/Procedures: Reports: None HEENT Surgical History: Reports: Naso-Sinus Surgery, Tonsillectomy GI Surgical History: Reports: Appendectomy Female Surgical History: Reports: None, Hysterectomy, Oophorectomy Neurological Surgical History: Reports: C-Spine Other Neurological Surgeries/Procedures: fusion of cervical vertebrate, has degenerative disc disease Social & Family History - Family History Family Medical History: Noncontributory Cardiac: Reports: NC - Caffeine Use Caffeine Use: Reports: Coffee ED ROS GENERAL - Review of Systems Review Of Systems: See Below ED EXAM, GENERAL - Physical Exam Exam: See Below Course - Vital Signs Last Recorded V/S: Last Vital Signs Temp 96.4 F 02/16/19 12:10 Pulse 87 02/16/19 12:10 Resp 18 02/16/19 12:10 BP 152/82 H 02/16/19 12:10 Pulse Ox 98 02/16/19 12:10 - Orders/Labs/Meds Orders: Active Orders 24 hr Category Date Time Status EKG Documentation Completion [RC] STAT Care 02/16/19 11:54 Active LIPASE [CHEM] Stat Lab 02/16/19 12:09 Received Sodium Chloride 0.9% [Normal Saline] 500 ml Med 02/16/19 13:45 Active IV STAT Medication Orders Sodium Chloride (Normal Saline) 500 mls @ 999 mls/hr IV STAT KEVIN Last Admin: 02/16/19 13:45 Dose: 999 mls/hr Labs: Laboratory Tests 02/16/19 02/16/19 02/16/19 Range/Units 12:09 12:09 13:36 WBC 5.37 (4.0-11.0) K/uL RBC 4.76 (4.30-5.90) M/uL Hgb 14.2 (12.0-16.0) g/dL Hct 44.1 (36.0-46.0) % MCV 92.6 (80.0-98.0) fL MCH 29.8 (27.0-32.0) pg MCHC 32.2 (31.0-37.0) g/dL RDW Std Deviation 47.8 (28.0-62.0) fl RDW Coeff of Nicky 14 (11.0-15.0) % Plt Count 276 (150-400) K/uL MPV 9.40 (7.40-12.00) fL Neut % (Auto) 29.1 L (48.0-80.0) % Lymph % (Auto) 58.8 H (16.0-40.0) % [facility] % (Auto) 7.8 (0.0-15.0) % Eos % (Auto) 3.7 (0.0-7.0) % Baso % (Auto) 0.6 (0.0-1.5) % Neut # (Auto) 1.6 (1.4-5.7) K/uL Lymph # (Auto) 3.2 H (0.6-2.4) K/uL [facility] # (Auto) 0.4 (0.0-0.8) K/uL Eos # (Auto) 0.2 (0.0-0.7) K/uL Baso # (Auto) 0.0 (0.0-0.1) K/uL Nucleated RBC % 0.0 /100WBC Nucleated RBCs # 0 K/uL Sodium 139 (136-145) mmol/L Potassium 3.9 (3.5-5.1) mmol/L Chloride 103 (98-107) mmol/L Carbon Dioxide 24.3 (21.0-32.0) mmol/L BUN 33 H (7.0-18.0) mg/dL Creatinine 2.0 H (0.6-1.0) mg/dL Est Cr Clr Drug Dosing TNP Estimated GFR (MDRD) 25.2 ml/min Glucose 121 H (74-106) mg/dL Calcium 9.4 (8.5-10.1) mg/dL Total Bilirubin 0.5 (0.2-1.0) mg/dL AST 31 (15-37) IU/L ALT 30 (14-63) IU/L Alkaline Phosphatase 78 (46-116) U/L Troponin I < 0.050 (0.000-0.056) ng/mL Total Protein 7.9 (6.4-8.2) g/dL Albumin 4.0 (3.4-5.0) g/dL Globulin 3.9 (2.6-4.0) g/dL Albumin/Globulin Ratio 1.0 (0.9-1.6) TSH 3rd Generation 5.05 H (0.36-3.74) uIU/mL Urine Color YELLOW Urine Appearance SLT CLOUDY Urine pH 5.5 (5.0-8.0) Ur Specific Gause >= 1.030 (1.001-1.035) Urine Protein TRACE H (NEGATIVE) mg/dL Urine Glucose (UA) NEGATIVE (NEGATIVE) mg/dL Urine Ketones NEGATIVE (NEGATIVE) mg/dL Urine Occult Blood NEGATIVE (NEGATIVE) Urine Nitrite NEGATIVE (NEGATIVE) Urine Bilirubin NEGATIVE (NEGATIVE) Urine Urobilinogen 0.2 (<2.0) EU/dL Ur Leukocyte Esterase NEGATIVE (NEGATIVE) Urine RBC 0-1 (0-2/HPF) Urine WBC 2-4 (0-5/HPF) Ur Epithelial Cells OCCASIONAL (NONE-FEW) Amorphous Sediment FEW (NEGATIVE) Urine Bacteria FEW (NEGATIVE) Urine Mucus FEW (NONE-MOD) Meds: Medications Generic Name Dose Route Start Last Admin Trade Name Freq PRN Reason Stop Dose Admin Sodium Chloride 500 mls @ 999 mls/hr 02/16/19 13:45 02/16/19 13:45 Normal Saline IV 999 mls/hr STAT KEVIN Administration Discontinued Medications Generic Name Dose Route Start Last Admin Trade Name Freq PRN Reason Stop Dose Admin Diphenhydramine HCl 25 mg 02/16/19 13:40 02/16/19 13:45 Benadryl IVPUSH 02/16/19 13:41 25 mg ONETIME ONE Administration Sodium Chloride 1,000 mls @ 999 mls/hr 02/16/19 11:54 02/16/19 12:14 Normal Saline IV 02/16/19 12:54 999 mls/hr STAT ONE Administration Ketorolac Tromethamine 30 mg 02/16/19 11:54 02/16/19 12:14 Toradol IVPUSH 02/16/19 11:55 30 mg ONETIME ONE Administration Lorazepam 0.5 mg 02/16/19 13:35 02/16/19 13:45 Ativan IVPUSH 02/16/19 13:36 0.5 mg ONETIME ONE Administration Ondansetron HCl 8 mg 02/16/19 11:54 02/16/19 12:14 Zofran IVPUSH 02/16/19 11:55 8 mg ONETIME ONE Administration Departure - Departure Time of Disposition: 14:26 Disposition: Home, Self-Care 01 Condition: Good Clinical Impression: Migraine - Discharge Information Referrals: PCP,Unknown [Primary Care Provider] - Additional Instructions: Continue current medications as directed Return if symptoms persist or worsen Follow-up with general surgery for consideration of repeat upper endoscopy, consideration of right upper quadrant ultrasound and/or HIDA scan may be of value Follow-up with primary care as needed [facility] - General Surgery Professional [address], [address] [place] [address] The following information is given to patients seen in the emergency department who are being discharged to home. This information is to outline your options for follow-up care. We provide all patients seen in our emergency department with a follow-up referral. The need for follow-up, as well as the timing and circumstances, are variable depending upon the specifics of your emergency department visit. If you don't have a primary care physician on staff, we will provide you with a referral. We always advise you to contact your personal physician following an emergency department visit to inform them of the circumstance of the visit and for follow-up with them and/or the need for any referrals to a consulting specialist. The emergency department will also refer you to a specialist when appropriate. This referral assures that you have the opportunity for follow-up care with a specialist. All of these measure are taken in an effort to provide you with optimal care, which includes your follow-up. Under all circumstances we always encourage you to contact your private physician who remains a resource for coordinating your care. When calling for follow-up care, please make the office aware that this follow-up is from your recent emergency room visit. If for any reason you are refused follow-up, please contact the emergency department at and asked to speak to the emergency department charge nurse. - My Orders Last 24 Hours: My Active Orders 02/16/19 11:54 EKG Documentation Completion [RC] STAT 02/16/19 12:09 LIPASE [CHEM] Stat 02/16/19 13:45 Sodium Chloride 0.9% [Normal Saline] 500 ml IV STAT - Assessment/Plan Last 24 Hours: My Active Orders 02/16/19 11:54 EKG Documentation Completion [RC] STAT 02/16/19 12:09 LIPASE [CHEM] Stat 02/16/19 13:45 Sodium Chloride 0.9% [Normal Saline] 500 ml IV STAT
[2019-02-16 12:56] LABS: CHLORIDE,CL 103 mmol/L (98-107); SODIUM,NA 139 mmol/L (136-145)
--- NOTE | 2019-02-16 13:05 | CR ---
INDICATION: Headache. Weakness. TECHNIQUE: AP chest. COMPARISON: 11/04/2017. FINDINGS: Cardiac, mediastinal and hilar contours are within limits. Pulmonary vasculature is unremarkable. Lungs are grossly clear. No pleural fluid or pneumothorax. IMPRESSION: No signs of acute thoracic disease. Dictated by Mathieu Kelley MD @ 02/16/2019 1:03:26 PM Dictated by: Mathieu Kelley MD @ 02/16/2019 13:03:47 (Electronically Signed)
[2019-02-16] MEDS ORDERED: LORazepam 2 MG/ML SDV IVPUSH ONE (13:35)
[2019-02-16] MEDS ORDERED: diphenhydrAMINE 50 MG/ML SDV IVPUSH ONE (13:40)
[2019-02-16] MEDS ORDERED: Sodium Chloride 0.9% 500 ML IV SCH (13:45)
--- NOTE | 2019-02-16 13:45 | CR ---
INDICATION: Abdominal pain. TECHNIQUE: Flat and upright views the abdomen and pelvis. FINDINGS: No free air on the upright image. Nonspecific bowel gas pattern without obstruction or ileus. No radiodense urinary tract calculi. Rotatory lumbar scoliotic curvature convex towards the left with multilevel degenerative disc disease. Calcified pelvic phleboliths. IMPRESSION: Nonspecific bowel gas pattern without obstruction or ileus. No free air. No radiodense urinary tract calculi. Dictated by Delon Hilliard MD @ Feb 16 2019 1:44PM Signed by Dr. Delon Hilliard @ Feb 16 2019 1:44PM
[2019-02-16 14:34] VITALS: BP 136/76
== END 2019-02-16 14:34 | disposition home or self-care (01) ==
LOC: MW.ED 11:49
DX: G43.909 Migraine, unspecified, not intractable, without status migrainosus (principal); F32.9 Major depressive disorder, single episode, unspecified; E03.9 Hypothyroidism, unspecified; Z88.0 Allergy status to penicillin; Z88.1 Allergy status to other antibiotic agents; Z79.899 Other long term (current) drug therapy
CPT/HCPCS: 36415; 71045; 74019; 80053; 81001; 83690; 84443; 84484; 85025; 93005; 96361; 96374; 96375; 99284; J1200; J1885; J2060; J2405; J7040

== ENCOUNTER 2019-02-28 17:34 | Observation (INO) | payer MEDICAID ==
[2019-02-28] MEDS ORDERED: Sodium Chloride 0.9% 1,000 ML IV ONE (18:04)
--- NOTE | 2019-02-28 18:05 | EDM.PDOC ---
ED HPI GENERAL MEDICAL PROBLEM - General Chief Complaint: Syncope Stated Complaint: HEAD TRAMA Time Seen by Provider: 02/28/19 17:36 Source of Information: Reports: Patient History Limitations: Reports: No Limitations - History of Present Illness INITIAL COMMENTS - FREE TEXT/NARRATIVE: HISTORY AND PHYSICAL: History of present illness: Patient is a 63-year-old female presents to the ED today via EMS after syncopal episode while working out in the garden in which she hit her head on a garbage can. Patient is unsure if she tripped and fell and hit her head or if she lost consciousness and hit her head. While in the ED, patient states she does take a daily aspirin. Patient does complain of head pain, right mid arm pain, left wrist pain. Patient denies any other symptoms. Patient denies fever, chills, chest pain, shortness of breath, or cough. Denies neck stiff ness, change in vision. Denies nausea, vomiting, abdominal pain, diarrhea, constipation, or dysuria. Has not noted any blood in urine or stool. Patient has been eating and drinking appropriately prior to onset of symptoms. Review of systems: As per history of present illness and below otherwise all systems reviewed and negative. Past medical history: As per history of present illness and as reviewed below otherwise noncontributory. Surgical history: As per history of present illness and as reviewed below otherwise noncontributory. Social history: See social history for further information Family history: As per history of present illness and as reviewed below otherwise noncontributory. Physical exam: General: Patient is alert, oriented, and in no acute distress. Patient laying comfortably on exam table. HEENT: Atraumatic, normocephalic, pupils equal and reactive bilaterally, negative for conjunctival pallor or scleral icterus, mucous membranes moist, TMs normal bilaterally, throat clear, neck supple, nontender, trachea midline. No drooling or trismus noted. No meningeal signs. No hot potato voice noted. Lungs: Clear to auscultation, breath sounds equal bilaterally, chest nontender. Heart: S1S2, regular rate and rhythm without overt murmur Abdomen: Soft, nondistended, nontender. Negative for masses or hepatosplenomegaly. Negative for costovertebral tenderness. Pelvis: Stable nontender. Genitourinary: Deferred. Rectal: Deferred. Skin: Intact, warm, dry. No lesions or rashes noted. Extremities/musculoskeletal: Atraumatic, negative for cords or calf pain. Neurovascular unremarkable. No stepoff, obvious deformities, crepitus, or pain to palpation of complete spine. Full ROM of bilateral upper and lower extremities without difficulty/pain. Mild pain to palpation of the right mid humerus and left wrist. Radial pulses grossly intact of bilateral upper extremities. Neuro: Awake, alert, oriented. Cranial nerves II through XII unremarkable. Cerebellum unremarkable. Motor and sensory unremarkable throughout. Exam nonfocal. Notes: Trauma alert called shortly after arrival to the ED. Dr. Berger directly involved in patient care. Patient arrived on backboard with cervical collar in place. Patient began to have drops in blood pressure which resolved after a few minutes. During episode, patient dizzy. Courtney Parker consulted on patient and will admit to observation. Voices understanding and is agreeable to plan of care. Denies any further questions or concerns at this time. Diagnostics: EKG, CBC, CMP, troponin, UA, chest x-ray, cervical spine CT, head CT, right humerus, left wrist, pelvic x-ray, CBC, CMP, UA, EKG, troponin, CPK, orthostatic vitals Therapeutics: saline, levoquin, vancomycin, Impression: Episodic hypotension with fall Abnormal renal function test Plan: 1. Admit to observation to Dr. Valdez Definitive disposition and diagnosis as appropriate pending reevaluation and review of above. Head Pain Score (Numeric/FACES): 10 - Related Data Allergies Allergy/AdvReac Type Severity Reaction Status Date / Time erythromycin base Allergy Nausea and Verified 02/28/19 17:59 [Erythromycin Base] Vomiting Penicillins Allergy Rash Verified 02/28/19 17:59 Home Meds: Home Meds Levothyroxine [Synthroid] 75 mcg PO DAILY 06/18/14 [History] Pantoprazole [ProTONIX] 40 mg PO BEDTIME 06/18/14 [History] Venlafaxine [Effexor XR] 300 mg PO DAILY 06/18/14 [History] traZODone 50 mg PO BEDTIME PRN 05/21/16 [History] Gabapentin [Neurontin] 300 mg PO QPM 04/18/17 [History] Aspirin 81 mg CHEW DAILY 05/15/17 [History] Biotin 1,000 mcg PO DAILY 05/15/17 [History] Calcium Citrate [Calcitrate (190 MG Calcium)] 2 tab PO BID 05/15/17 [History] Multivitamin [Multivitamins] 1 tab PO DAILY 05/15/17 [History] Vitamin B Complex [Super B-50 Complex] 1 tab PO BID 05/15/17 [History] Vitamin E 400 units PO DAILY 05/15/17 [History] Lutein 20 mg PO DAILY 05/16/17 [History] Ondansetron [Ondansetron ODT] 4 mg PO ASDIRECTED PRN 03/31/18 [History] Ascorbic Acid [Vitamin C] 1,000 mg PO BID 02/28/19 [History] Baclofen 10 mg PO ASDIRECTED 02/28/19 [History] C-Lynn/Alicia/Bacl/Bupi/Clon 1 pump TOP ASDIRECTED 02/28/19 [History] Calcium Carbonate/Vitamin D3 [Caltrate 600 Plus D3 Tablet] 1 tab PO BID [History] Cholecalciferol (Vitamin D3) [Vitamin D3] 2,000 unit PO DAILY 02/28/19 [History] Cyanocobalamin (Vitamin B-12) [Vitamin B-12] 3,000 mcg PO DAILY 02/28/19 [ History] Divalproex Sodium 250 mg PO BID 02/28/19 [History] Ldn 4.5 mg PO QPM 02/28/19 [History] Magnesium 250 mg PO QPM 02/28/19 [History] Magnesium 250 tab PO DAILY 02/28/19 [History] Jakob Efa 2,100 mg PO QPM 02/28/19 [History] Melatonin 3 mg PO DAILY 02/28/19 [History] Melatonin [Melatin] 3 mg PO QPM 02/28/19 [History] Past Medical History - Past Health History Medical/Surgical History: Denies Medical/Surgical History HEENT History: Reports: Hard of Hearing Cardiovascular History: Reports: Other (See Below) Other Cardiovascular History: Lower extremity edema Respiratory History: Reports: None Gastrointestinal History: Reports: GERD, PUD Genitourinary History: Reports: None [employer] History: Reports: Musculoskeletal History: Reports: Arthritis, Fracture, Fibromyalgia Other Musculoskeletal History: hx of fx right elbow, wrist and foot Neurological History: Reports: Migraines Psychiatric History: Reports: Depression Endocrine/Metabolic History: Reports: Hypothyroidism Hematologic History: Reports: None, Blood Transfusion(s) Immunologic History: Reports: None Oncologic (Cancer) History: Reports: None Dermatologic History: Reports: None - Infectious Disease History Infectious Disease History: Reports: Chicken Pox, Measles, Mumps - Past Surgical History Head Surgeries/Procedures: Reports: None HEENT Surgical History: Reports: Naso-Sinus Surgery, Tonsillectomy GI Surgical History: Reports: Appendectomy Female Surgical History: Reports: None, Hysterectomy, Oophorectomy Neurological Surgical History: Reports: C-Spine Other Neurological Surgeries/Procedures: fusion of cervical vertebrate, has degenerative disc disease Social & Family History - Family History Family Medical History: Noncontributory Cardiac: Reports: ID - Caffeine Use Caffeine Use: Reports: Coffee Review of Systems - Review of Systems Review Of Systems: ROS reveals no pertinent complaints other than HPI. ED EXAM, GENERAL - Physical Exam Exam: See Below (see dictation) Course - Vital Signs Last Recorded V/S: Last Vital Signs Temp 37.2 C 02/28/19 18:07 Pulse 103 H 02/28/19 18:07 Resp 22 H 02/28/19 18:07 BP 124/91 H 02/28/19 18:07 Pulse Ox 96 02/28/19 18:07 - Orders/Labs/Meds Orders: Active Orders 24 hr Category Date Time Status Admission Status [Patient Status] [ADT] Stat ADT 02/28/19 19:29 Ordered EKG Documentation Completion [RC] STAT Care 02/28/19 17:56 Active Orthostatic Vital Signs [RC] ASDIRECTED Care 02/28/19 19:25 Ordered CULTURE BLOOD [BC] Stat Lab 02/28/19 18:49 Ordered CULTURE BLOOD [BC] Stat Lab 02/28/19 18:49 Ordered Levofloxacin/Dextrose 5%-Water [Levaquin in D5W 750 MG/ Med 02/28/19 18:51 Active 150 ML] 750 mg Premix Bag 1 bag IV ONETIME Vancomycin [Vancocin] 1 gm Med 02/28/19 18:51 Active Sodium Chloride 0.9% [Normal Saline] 250 ml IV ONETIME Blood Culture x2 Reflex Set [OM.PC] Stat Oth 02/28/19 18:49 Ordered Medication Orders Vancomycin HCl 1 gm/ Sodium (Chloride) 250 mls @ 166 mls/hr IV ONETIME ONE Stop: 02/28/19 20:21 Last Admin: 02/28/19 19:10 Dose: 166 mls/hr Levofloxacin/Dextrose 750 mg/ (Premix) 150 mls @ 100 mls/hr IV ONETIME ONE Stop: 02/28/19 20:20 Last Admin: 02/28/19 19:11 Dose: 100 mls/hr Labs: Laboratory Tests 02/28/19 02/28/19 02/28/19 Range/Units 18:02 18:02 18:02 WBC 8.39 (4.0-11.0) K/uL RBC 4.26 L (4.30-5.90) M/uL Hgb 12.7 (12.0-16.0) g/dL Hct 39.6 (36.0-46.0) % MCV 93.0 (80.0-98.0) fL MCH 29.8 (27.0-32.0) pg MCHC 32.1 (31.0-37.0) g/dL RDW Std Deviation 48.3 (28.0-62.0) fl RDW Coeff of Nicky 14 (11.0-15.0) % Plt Count 352 (150-400) K/uL MPV 9.70 (7.40-12.00) fL Neut % (Auto) 42.5 L (48.0-80.0) % Lymph % (Auto) 38.9 (16.0-40.0) % [place] % (Auto) 15.1 H (0.0-15.0) % Eos % (Auto) 3.3 (0.0-7.0) % Baso % (Auto) 0.2 (0.0-1.5) % Neut # (Auto) 3.6 (1.4-5.7) K/uL Lymph # (Auto) 3.3 H (0.6-2.4) K/uL [place] # (Auto) 1.3 H (0.0-0.8) K/uL Eos # (Auto) 0.3 (0.0-0.7) K/uL Baso # (Auto) 0.0 (0.0-0.1) K/uL Nucleated RBC % 0.0 /100WBC Nucleated RBCs # 0 K/uL Lactate (0.20-2.00) mmol/L Sodium 141 (136-145) mmol/L Potassium 4.3 (3.5-5.1) mmol/L Chloride 105 (98-107) mmol/L Carbon Dioxide 24.5 (21.0-32.0) mmol/L BUN 28 H (7.0-18.0) mg/dL Creatinine 2.0 H (0.6-1.0) mg/dL Est Cr Clr Drug Dosing 26.24 mL/min Estimated GFR (MDRD) 25.2 ml/min Glucose 105 (74-106) mg/dL Calcium 10.2 H (8.5-10.1) mg/dL Total Bilirubin 0.2 (0.2-1.0) mg/dL AST 14 L (15-37) IU/L ALT 15 (14-63) IU/L Alkaline Phosphatase 76 (46-116) U/L Creatine Kinase 99 (26-308) U/L Troponin I < 0.050 (0.000-0.056) ng/mL Total Protein 7.5 (6.4-8.2) g/dL Albumin 4.0 (3.4-5.0) g/dL Globulin 3.5 (2.6-4.0) g/dL Albumin/Globulin Ratio 1.1 (0.9-1.6) Urine Color Urine Appearance Urine pH (5.0-8.0) Ur Specific [place] (1.001-1.035) Urine Protein (NEGATIVE) mg/dL Urine Glucose (UA) (NEGATIVE) mg/dL Urine Ketones (NEGATIVE) mg/dL Urine Occult Blood (NEGATIVE) Urine Nitrite (NEGATIVE) Urine Bilirubin (NEGATIVE) Urine Urobilinogen (<2.0) EU/dL Ur Leukocyte Esterase (NEGATIVE) 02/28/19 02/28/19 Range/Units 18:55 19:04 WBC (4.0-11.0) K/uL RBC (4.30-5.90) M/uL Hgb (12.0-16.0) g/dL Hct (36.0-46.0) % MCV (80.0-98.0) fL MCH (27.0-32.0) pg MCHC (31.0-37.0) g/dL RDW Std Deviation (28.0-62.0) fl RDW Coeff of Nicky (11.0-15.0) % Plt Count (150-400) K/uL MPV (7.40-12.00) fL Neut % (Auto) (48.0-80.0) % Lymph % (Auto) (16.0-40.0) % [place] % (Auto) (0.0-15.0) % Eos % (Auto) (0.0-7.0) % Baso % (Auto) (0.0-1.5) % Neut # (Auto) (1.4-5.7) K/uL Lymph # (Auto) (0.6-2.4) K/uL [place] # (Auto) (0.0-0.8) K/uL Eos # (Auto) (0.0-0.7) K/uL Baso # (Auto) (0.0-0.1) K/uL Nucleated RBC % /100WBC Nucleated RBCs # K/uL Lactate 1.9 (0.20-2.00) mmol/L Sodium (136-145) mmol/L Potassium (3.5-5.1) mmol/L Chloride (98-107) mmol/L Carbon Dioxide (21.0-32.0) mmol/L BUN (7.0-18.0) mg/dL Creatinine (0.6-1.0) mg/dL Est Cr Clr Drug Dosing mL/min Estimated GFR (MDRD) ml/min Glucose (74-106) mg/dL Calcium (8.5-10.1) mg/dL Total Bilirubin (0.2-1.0) mg/dL AST (15-37) IU/L ALT (14-63) IU/L Alkaline Phosphatase (46-116) U/L Creatine Kinase (26-308) U/L Troponin I (0.000-0.056) ng/mL Total Protein (6.4-8.2) g/dL Albumin (3.4-5.0) g/dL Globulin (2.6-4.0) g/dL Albumin/Globulin Ratio (0.9-1.6) Urine Color YELLOW Urine Appearance CLEAR Urine pH 5.5 (5.0-8.0) Ur Specific [place] 1.025 (1.001-1.035) Urine Protein NEGATIVE (NEGATIVE) mg/dL Urine Glucose (UA) NEGATIVE (NEGATIVE) mg/dL Urine Ketones TRACE H (NEGATIVE) mg/dL Urine Occult Blood NEGATIVE (NEGATIVE) Urine Nitrite NEGATIVE (NEGATIVE) Urine Bilirubin NEGATIVE (NEGATIVE) Urine Urobilinogen 0.2 (<2.0) EU/dL Ur Leukocyte Esterase NEGATIVE (NEGATIVE) Meds: Medications Generic Name Dose Route Start Last Admin Trade Name Freq PRN Reason Stop Dose Admin Vancomycin HCl 1 gm/ Sodium 250 mls @ 166 mls/hr 02/28/19 18:51 02/28/19 19: 10 Chloride IV 02/28/19 20:21 166 mls/hr ONETIME ONE Administration Levofloxacin/Dextrose 750 mg/ 150 mls @ 100 mls/hr 02/28/19 18:51 02/28/19 19 :11 Premix IV 02/28/19 20:20 100 mls/hr ONETIME ONE Administration Discontinued Medications Generic Name Dose Route Start Last Admin Trade Name Freq PRN Reason Stop Dose Admin Sodium Chloride 1,000 mls @ 999 mls/hr 02/28/19 18:04 02/28/19 18:47 Normal Saline IV 02/28/19 19:04 999 mls/hr STAT ONE Administration Departure - Departure Time of Disposition: 19:34 Disposition: Refer to Observation Clinical Impression: Hypotensive episode, Abnormal renal function test - Discharge Information Referrals: PCP,Unknown [Primary Care Provider] - - My Orders Last 24 Hours: My Active Orders 02/28/19 17:56 EKG Documentation Completion [RC] STAT 02/28/19 18:49 CULTURE BLOOD [BC] Stat CULTURE BLOOD [BC] Stat Blood Culture x2 Reflex Set [OM.PC] Stat 02/28/19 18:51 Levofloxacin/Dextrose 5%-Water [Levaquin in D5W 750 MG/150 ML] 750 mg Premix Bag 1 bag IV ONETIME Vancomycin [Vancocin] 1 gm Sodium Chloride 0.9% [Normal Saline] 250 ml IV ONETIME 02/28/19 19:25 Orthostatic Vital Signs [RC] ASDIRECTED 02/28/19 19:29 Admission Status [Patient Status] [ADT] Stat - Assessment/Plan Last 24 Hours: My Active Orders 02/28/19 17:56 EKG Documentation Completion [RC] STAT 02/28/19 18:49 CULTURE BLOOD [BC] Stat CULTURE BLOOD [BC] Stat Blood Culture x2 Reflex Set [OM.PC] Stat 02/28/19 18:51 Levofloxacin/Dextrose 5%-Water [Levaquin in D5W 750 MG/150 ML] 750 mg Premix Bag 1 bag IV ONETIME Vancomycin [Vancocin] 1 gm Sodium Chloride 0.9% [Normal Saline] 250 ml IV ONETIME 02/28/19 19:25 Orthostatic Vital Signs [RC] ASDIRECTED 02/28/19 19:29 Admission Status [Patient Status] [ADT] Stat
[2019-02-28 18:40] LABS: CHLORIDE,CL 105 mmol/L (98-107); SODIUM,NA 141 mmol/L (136-145)
--- NOTE | 2019-02-28 18:42 | CT ---
INDICATION: Fall, head trauma TECHNIQUE: Head CT without contrast. COMPARISON: None FINDINGS: CSF spaces: Within normal limits for age. Brain parenchyma: There are nonspecific low attenuation white matter changes consistent with chronic microvascular disease. No sign of mass, hemorrhage, or midline shift. Skull base and calvarium: The visualized paranasal sinuses and mastoid air cells demonstrate no acute or significant findings. The visualized orbits are grossly unremarkable. No skull fractures. There is intracranial atherosclerosis. There is a right frontal scalp contusion. IMPRESSION: 1. No acute findings. 2. Nonspecific white matter disease, typical of chronic microvascular disease. Please note that all CT scans at this facility use dose modulation, iterative reconstruction, and/or weight-based dosing when appropriate to reduce radiation dose to as low as reasonably achievable. Dictated by Gabrielle Medina MD @ Feb 28 2019 6:40PM Signed by Dr. Gabrielle Medina @ Feb 28 2019 6:40PM
[2019-02-28] MEDS ORDERED: Levofloxacin/Dextrose 5%-Water 750 MG in Premix Bag 1 BAG IV ONE (18:51)
--- NOTE | 2019-02-28 18:51 | CT ---
INDICATION: Fall TECHNIQUE: CT cervical spine without contrast. COMPARISON: None FINDINGS: Vertebral alignment: Alignment is normal. Vertebrae: Anterior fusion hardware at C5-C7. Hardware appears intact without evidence for complication. There are no fractures or suspicious bony lesions. Discs and facet joints: There are moderate multilevel degenerative changes. Extraspinal findings: Paraspinous soft tissues are unremarkable. IMPRESSION: 1. No sign of acute injury. 2. Anterior fusion hardware at C5-C7 without evidence for complication. Please note that all CT scans at this facility use dose modulation, iterative reconstruction, and/or weight-based dosing when appropriate to reduce radiation dose to as low as reasonably achievable. Dictated by Gabrielle Medina MD @ Feb 28 2019 6:50PM Signed by Dr. Gabrielle Medina @ Feb 28 2019 6:50PM
--- NOTE | 2019-02-28 19:00 | CR ---
INDICATION: Status post syncope and fall. COMPARISON: 02/16/2019 FINDINGS: A supine single view of the chest was obtained on the trauma backboard at 1824 hours. There is eventration of the right hemidiaphragm, unchanged from the previous study. The lungs remain clear. No focal or diffuse infiltrates are present. The heart remains normal in size. The mediastinum is normal in appearance. Again seen is the metallic plate from anterior cervical fusion. IMPRESSION: No active disease seen in the chest. Dictated by Gennaro Whitlock MD @ Feb 28 2019 6:57PM Signed by Dr. Gennaro Whitlock @ Feb 28 2019 6:59PM
--- NOTE | 2019-02-28 19:02 | CR ---
INDICATION: Pain after fall COMPARISON: None available. TECHNIQUE: AP and lateral views of the right humerus were obtained for a total of two views. There is no sign of fracture or dislocation. The visualized elbow and shoulder are normal in appearance. The soft tissue planes are preserved. There is no opaque foreign body. IMPRESSION: Normal right humerus. Dictated by Gennaro Whitlock MD @ Feb 28 2019 7:01PM Signed by Dr. Gennaro Whitlock @ Feb 28 2019 7:01PM
--- NOTE | 2019-02-28 19:07 | CR ---
HISTORY: Status post fall COMPARISON: Abdomen from 02/16/2019 FINDINGS: A single AP supine view of the pelvis obtained on the trauma backboard shows no sign of fracture or dislocation. The hips are normal in appearance with no significant degenerative changes. The inferior lumbar spine is again seen to be tilted towards the left indicating a levoscoliosis. There is no change in moderate L4-5 and L5-S1 disc degenerative disease. The soft tissues of the pelvis are unremarkable. IMPRESSION: No sign of acute osseous injury to the pelvis. Stable degenerative changes in the inferior lumbar spine. Dictated by Gennaro Whitlock MD @ Feb 28 2019 7:03PM Signed by Dr. Gennaro Whitlock @ Feb 28 2019 7:05PM
--- NOTE | 2019-02-28 19:09 | CR ---
HISTORY: Pain after fall COMPARISON: None available. FINDINGS: AP, lateral, and oblique views of the left wrist are obtained for a total of three views. There is no sign of fracture or dislocation. The bones of the carpus are in anatomic alignment with the distal radius. There is no sign of significant degenerative change. The soft tissues are normal in appearance with no sign of foreign body. IMPRESSION: Normal left wrist. Dictated by Gennaro Whitlock MD @ Feb 28 2019 7:06PM Signed by Dr. Gennaro Whitlock @ Feb 28 2019 7:07PM
[2019-02-28] MEDS ORDERED: Baclofen 10 MG Tab PO PRN (22:57)
[2019-02-28] MEDS ORDERED: Ondansetron 4 MG/2 ML SDV IVPUSH PRN (23:22)
[2019-02-28] MEDS ORDERED: Sodium Chloride 0.9% 1,000 ML IV SCH (23:30)
--- NOTE | 2019-02-28 23:30 | PCM.HP ---
H&P History of Present Illness - General Date of Service: 02/28/19 Admit Problem/Dx: Admission Diagnosis/Problem Admission Diagnosis/Problem Traumatic injury of head - History of Present Illness Initial Comments - Free Text/Narative: 62 year old female with a past medical history of migraines, hypothyroidism, and fibromyalgia who presents following a syncopal episode. Patient reports she was weeding her garden and she accidently threw her weeding pail into a large dumpster. When she was trying to get the pail the lid of the dumpster hit her head. When walking back to the house she woke up lying on the grass with a headache. Patient reports not eating or drinking much yesterday due to having a migraine. Her headache tonight she says is not like her migraines. She feels dizzy and unstead on her feet. In the ED she was noted to be hypotensive inthe 70s systolic she was given a fluid bolus, Levaquin and vancomycin. She denies any fevers or cough. CT head showed no acute pathology. Head Pain Score (Numeric/FACES): 5 - Related Data Allergies/Adverse Reactions: Allergies Allergy/AdvReac Type Severity Reaction Status Date / Time erythromycin base Allergy Nausea and Verified 02/28/19 17:59 [Erythromycin Base] Vomiting Penicillins Allergy Rash Verified 02/28/19 17:59 Home Medications: Home Meds Levothyroxine [Synthroid] 75 mcg PO DAILY 06/18/14 [History] Pantoprazole [ProTONIX] 40 mg PO BEDTIME 06/18/14 [History] Venlafaxine [Effexor XR] 300 mg PO BEDTIME 06/18/14 [History] Gabapentin [Neurontin] 300 mg PO QPM 04/18/17 [History] Aspirin 81 mg CHEW BEDTIME 05/15/17 [History] Biotin 1,000 mcg PO DAILY 05/15/17 [History] Multivitamin [Multivitamins] 1 tab PO DAILY 05/15/17 [History] Vitamin B Complex [Super B-50 Complex] 1 tab PO BID 05/15/17 [History] Vitamin E 400 units PO DAILY 05/15/17 [History] Lutein 20 mg PO DAILY 05/16/17 [History] Ondansetron [Ondansetron ODT] 4 mg PO ASDIRECTED PRN 03/31/18 [History] Ascorbic Acid [Vitamin C] 1,000 mg PO BID 02/28/19 [History] Baclofen 10 mg PO ASDIRECTED PRN 02/28/19 [History] Calcium Carbonate/Vitamin D3 [Caltrate 600 Plus D3 Tablet] 1 tab PO BID [History] Cholecalciferol (Vitamin D3) [Vitamin D3] 2,000 unit PO DAILY 02/28/19 [History] Cyanocobalamin (Vitamin B-12) [Vitamin B-12] 3,000 mcg PO DAILY 02/28/19 [ History] Divalproex Sodium 250 mg PO BEDTIME 02/28/19 [History] Ldn 4.5 mg PO QPM 02/28/19 [History] Magnesium 250 mg PO QPM 02/28/19 [History] Past Medical History - Past Health History Medical/Surgical History: Denies Medical/Surgical History HEENT History: Reports: Hard of Hearing Cardiovascular History: Reports: Other (See Below) Other Cardiovascular History: Lower extremity edema Respiratory History: Reports: None Gastrointestinal History: Reports: GERD, PUD Genitourinary History: Reports: None [employer]ES History: Reports: Musculoskeletal History: Reports: Arthritis, Fracture, Fibromyalgia Other Musculoskeletal History: hx of fx right elbow, wrist and foot Neurological History: Reports: Migraines Psychiatric History: Reports: Depression Endocrine/Metabolic History: Reports: Hypothyroidism Hematologic History: Reports: None, Blood Transfusion(s) Immunologic History: Reports: None Oncologic (Cancer) History: Reports: None Dermatologic History: Reports: None - Infectious Disease History Infectious Disease History: Reports: Chicken Pox, Measles, Mumps - Past Surgical History Head Surgeries/Procedures: Reports: None HEENT Surgical History: Reports: Naso-Sinus Surgery, Tonsillectomy GI Surgical History: Reports: Appendectomy Female Surgical History: Reports: None, Hysterectomy, Oophorectomy Neurological Surgical History: Reports: C-Spine Other Neurological Surgeries/Procedures: fusion of cervical vertebrate, has degenerative disc disease Social & Family History - Family History Family Medical History: Noncontributory Cardiac: Reports: OK - Tobacco Use Smoking Status *Q: Never Smoker - Caffeine Use Caffeine Use: Reports: Coffee - Recreational Drug Use Recreational Drug Use: No H&P Review of Systems - Review of Systems: Review Of Systems: ROS reveals no pertinent complaints other than HPI. Exam - Exam Exam: See Below - Vital Signs Vital Signs: Last Vital Signs Temp 36.6 C 02/28/19 21:35 Pulse 87 02/28/19 21:35 Resp 15 02/28/19 21:35 BP 173/84 H 02/28/19 21:35 Pulse Ox 96 02/28/19 21:35 Orthostatic Blood Pressure [ 136/78 Standing] Orthostatic Blood Pressure [ 142/83 Sitting] Orthostatic Blood Pressure [ 139/80 Supine] Weight: 83.053 kg - Exam General: Alert, Oriented HEENT: Mucosa Moist & [place], Other (no abrasion but tenderness of right temoral/ pariatal area) Neck: Supple, Full Range of Motion Lungs: Clear to Auscultation, Normal Respiratory Effort Cardiovascular: Regular Rate, Regular Rhythm GI/Abdominal Exam: Normal Bowel Sounds, Soft, Non-Tender Extremities: Normal Range of Motion, Non-Tender, No Pedal Edema Skin: Warm, Dry, Intact Neurological: Cranial Nerves Intact, Reflexes Equal Bilateral, Strength Equal Bilateral, Normal Speech, Normal Tone, Sensation Intact. No: Focal Deficit - Patient Data Lab Results Last 24 hrs: Laboratory Results - last 24 hr 02/28/19 02/28/19 02/28/19 Range/Units 18:02 18:02 18:02 WBC 8.39 (4.0-11.0) K/uL RBC 4.26 L (4.30-5.90) M/uL Hgb 12.7 (12.0-16.0) g/dL Hct 39.6 (36.0-46.0) % MCV 93.0 (80.0-98.0) fL MCH 29.8 (27.0-32.0) pg MCHC 32.1 (31.0-37.0) g/dL RDW Std Deviation 48.3 (28.0-62.0) fl RDW Coeff of Nicky 14 (11.0-15.0) % Plt Count 352 (150-400) K/uL MPV 9.70 (7.40-12.00) fL Neut % (Auto) 42.5 L (48.0-80.0) % Lymph % (Auto) 38.9 (16.0-40.0) % [place] % (Auto) 15.1 H (0.0-15.0) % Eos % (Auto) 3.3 (0.0-7.0) % Baso % (Auto) 0.2 (0.0-1.5) % Neut # (Auto) 3.6 (1.4-5.7) K/uL Lymph # (Auto) 3.3 H (0.6-2.4) K/uL [place] # (Auto) 1.3 H (0.0-0.8) K/uL Eos # (Auto) 0.3 (0.0-0.7) K/uL Baso # (Auto) 0.0 (0.0-0.1) K/uL Nucleated RBC % 0.0 /100WBC Nucleated RBCs # 0 K/uL Lactate (0.20-2.00) mmol/L Sodium 141 (136-145) mmol/L Potassium 4.3 (3.5-5.1) mmol/L Chloride 105 (98-107) mmol/L Carbon Dioxide 24.5 (21.0-32.0) mmol/L BUN 28 H (7.0-18.0) mg/dL Creatinine 2.0 H (0.6-1.0) mg/dL Est Cr Clr Drug Dosing 26.24 mL/min Estimated GFR (MDRD) 25.2 ml/min Glucose 105 (74-106) mg/dL Calcium 10.2 H (8.5-10.1) mg/dL Total Bilirubin 0.2 (0.2-1.0) mg/dL AST 14 L (15-37) IU/L ALT 15 (14-63) IU/L Alkaline Phosphatase 76 (46-116) U/L Creatine Kinase 99 (26-308) U/L Troponin I < 0.050 (0.000-0.056) ng/mL Total Protein 7.5 (6.4-8.2) g/dL Albumin 4.0 (3.4-5.0) g/dL Globulin 3.5 (2.6-4.0) g/dL Albumin/Globulin Ratio 1.1 (0.9-1.6) Urine Color Urine Appearance Urine pH (5.0-8.0) Ur Specific [place] (1.001-1.035) Urine Protein (NEGATIVE) mg/dL Urine Glucose (UA) (NEGATIVE) mg/dL Urine Ketones (NEGATIVE) mg/dL Urine Occult Blood (NEGATIVE) Urine Nitrite (NEGATIVE) Urine Bilirubin (NEGATIVE) Urine Urobilinogen (<2.0) EU/dL Ur Leukocyte Esterase (NEGATIVE) 02/28/19 02/28/19 Range/Units 18:55 19:04 WBC (4.0-11.0) K/uL RBC (4.30-5.90) M/uL Hgb (12.0-16.0) g/dL Hct (36.0-46.0) % MCV (80.0-98.0) fL MCH (27.0-32.0) pg MCHC (31.0-37.0) g/dL RDW Std Deviation (28.0-62.0) fl RDW Coeff of Nicky (11.0-15.0) % Plt Count (150-400) K/uL MPV (7.40-12.00) fL Neut % (Auto) (48.0-80.0) % Lymph % (Auto) (16.0-40.0) % [place] % (Auto) (0.0-15.0) % Eos % (Auto) (0.0-7.0) % Baso % (Auto) (0.0-1.5) % Neut # (Auto) (1.4-5.7) K/uL Lymph # (Auto) (0.6-2.4) K/uL [place] # (Auto) (0.0-0.8) K/uL Eos # (Auto) (0.0-0.7) K/uL Baso # (Auto) (0.0-0.1) K/uL Nucleated RBC % /100WBC Nucleated RBCs # K/uL Lactate 1.9 (0.20-2.00) mmol/L Sodium (136-145) mmol/L Potassium (3.5-5.1) mmol/L Chloride (98-107) mmol/L Carbon Dioxide (21.0-32.0) mmol/L BUN (7.0-18.0) mg/dL Creatinine (0.6-1.0) mg/dL Est Cr Clr Drug Dosing mL/min Estimated GFR (MDRD) ml/min Glucose (74-106) mg/dL Calcium (8.5-10.1) mg/dL Total Bilirubin (0.2-1.0) mg/dL AST (15-37) IU/L ALT (14-63) IU/L Alkaline Phosphatase (46-116) U/L Creatine Kinase (26-308) U/L Troponin I (0.000-0.056) ng/mL Total Protein (6.4-8.2) g/dL Albumin (3.4-5.0) g/dL Globulin (2.6-4.0) g/dL Albumin/Globulin Ratio (0.9-1.6) Urine Color YELLOW Urine Appearance CLEAR Urine pH 5.5 (5.0-8.0) Ur Specific [place] 1.025 (1.001-1.035) Urine Protein NEGATIVE (NEGATIVE) mg/dL Urine Glucose (UA) NEGATIVE (NEGATIVE) mg/dL Urine Ketones TRACE H (NEGATIVE) mg/dL Urine Occult Blood NEGATIVE (NEGATIVE) Urine Nitrite NEGATIVE (NEGATIVE) Urine Bilirubin NEGATIVE (NEGATIVE) Urine Urobilinogen 0.2 (<2.0) EU/dL Ur Leukocyte Esterase NEGATIVE (NEGATIVE) Result Diagrams: 02/28/19 18:02 02/28/19 18:02 Max Results Last 24 hrs: Microbiology 02/28/19 19:16 Anaerobic Blood Culture - Final Blood - Venous - Lab Draw Problem List Initiated/Reviewed/Updated: Yes Orders Last 24hrs: Active Orders 24 hr Category Date Time Status Admission Status [Patient Status] [ADT] Stat ADT 02/28/19 19:29 Active Antiembolic Devices [RC] PER UNIT ROUTINE Care 02/28/19 23:23 Active Orthostatic Vital Signs [RC] ASDIRECTED Care 02/28/19 19:25 Active Oxygen Therapy [RC] PRN Care 02/28/19 23:22 Active VTE/DVT Education [RC] PER UNIT ROUTINE Care 02/28/19 23:22 Active Vital Signs [RC] Q4H Care 02/28/19 23:22 Active PT Evaluation and Treatment [CONS] Routine Cons 02/28/19 23:22 Active Regular Diet [DIET] Diet 02/28/19 Breakfast Active BASIC METABOLIC PANEL,BMP [CHEM] AM Lab 03/01/19 05:11 Ordered CBC WITH AUTO DIFF [HEME] AM Lab 03/01/19 05:11 Ordered CULTURE BLOOD [BC] Stat Lab 02/28/19 19:04 Received CULTURE BLOOD [BC] Stat Lab 02/28/19 19:16 Results Acetaminophen [Tylenol] Med 02/28/19 23:13 Active 650 mg PO Q6H PRN Baclofen [Lioresal] Med 02/28/19 22:57 Pending 10 mg PO ASDIRECTED PRN Divalproex Sodium Med 03/01/19 21:00 Active 250 mg PO BEDTIME Gabapentin [Neurontin] Med 03/01/19 18:00 Active 300 mg PO QPM Levothyroxine Med 03/01/19 07:30 Active 75 mcg PO ACBREAKFAST Ondansetron [Zofran] Med 02/28/19 23:22 Ordered 4 mg IVPUSH Q4H PRN Pantoprazole [ProTONIX] Med 03/01/19 21:00 Active 40 mg PO BEDTIME Sodium Chloride 0.9% [Normal Saline] 1,000 ml Med 02/28/19 23:30 Ordered IV ASDIRECTED Venlafaxine [Effexor XR] Med 03/01/19 21:00 Active 300 mg PO BEDTIME Blood Culture x2 Reflex Set [OM.PC] Stat Oth 02/28/19 18:49 Ordered Sequential Compression Device [OM.PC] Per Unit Routine Oth 02/28/19 23:22 Ordered Resuscitation Status Routine Resus Stat 02/28/19 23:22 Ordered Medication Orders Acetaminophen (Tylenol) 650 mg PO Q6H PRN PRN Reason: Pain Baclofen (Lioresal) 10 mg PO ASDIRECTED PRN PRN Reason: Muscle Spasm Divalproex Sodium (Divalproex Sodium) 250 mg PO BEDTIME KEVIN Gabapentin (Neurontin) 300 mg PO QPM KEVIN Sodium Chloride (Normal Saline) 1,000 mls @ 125 mls/hr IV ASDIRECTED KEVIN Levothyroxine Sodium (Levothyroxine) 75 mcg PO ACBREAKFAST KEVIN Ondansetron HCl (Zofran) 4 mg IVPUSH Q4H PRN PRN Reason: Nausea Pantoprazole Sodium (Protonix) 40 mg PO BEDTIME KEVIN Venlafaxine HCl (Effexor Xr) 300 mg PO BEDTIME KEVIN Assessment/Plan Comment:: 63yo female admitted following a syncopal episode. Patient likely suffered a concussion and has an acute kidney injury from dehydration. We will hydration with IV fluids and monitor overnight.
[2019-02-28] MEDS ORDERED: Pantoprazole 40 MG Tab.CR PO STA (23:36)
[2019-02-28] MEDS ORDERED: Venlafaxine 75 MG Cap.ER PO STA (23:37)
[2019-02-28] MEDS ORDERED: Divalproex Sodium Delayed-Release 250 MG Tab.CR PO STA (23:38)
[2019-03-01] MEDS: Acetaminophen 325 MG Tab PO PRN ×2 (00:03→06:02)
[2019-03-01 07:05] VITALS: BP 124/83
[2019-03-01] MEDS ORDERED: Levothyroxine 75 MCG Tab PO SCH (07:30)
--- NOTE | 2019-03-01 10:14 | PCM.DCSUM1 ---
Discharge Summary - Hospital Course Free Text/Narrative:: Admission date: 02/28/2019 Discharge date: 03/01/2019 Admission diagnosis: #1. Concussion #2. Syncope #3. CIERA #4. Dehydration #5. History of migraines, fibromyalgia Discharge diagnosis: #1. Concussion - improved symptoms #2. Dehydration improved Hospital course: 63F presented to the ER after having a syncopal episode after hitting her head on a dumpster. She was found to have increase in Creatinine. Was admitted for dehydration and concussion. CT head was negative. She was given IV fluids. The next morning, she was able to ambulate with PT and felt comfortable. She wanted to go home. She is to f/u with her PCP. - Discharge Data Discharge Date: 03/01/19 Discharge Disposition: Home, Self-Care 01 Condition: Stable - Patient Summary/Data Consults: Consultations 02/28/19 23:22 PT Evaluation and Treatment [CONS] Routine - Patient Instructions Diet: Usual Diet as Tolerated Activity: As Tolerated Notify Provider of: Fever, Increased Pain, Swelling and Redness, Nausea and/or Vomiting - Discharge Plan Home Medications: Home Meds Levothyroxine [Synthroid] 75 mcg PO DAILY 06/18/14 [History] Pantoprazole [ProTONIX] 40 mg PO BEDTIME 06/18/14 [History] Venlafaxine [Effexor XR] 300 mg PO BEDTIME 06/18/14 [History] Gabapentin [Neurontin] 300 mg PO QPM 04/18/17 [History] Aspirin 81 mg CHEW BEDTIME 05/15/17 [History] Biotin 1,000 mcg PO DAILY 05/15/17 [History] Multivitamin [Multivitamins] 1 tab PO DAILY 05/15/17 [History] Vitamin B Complex [Super B-50 Complex] 1 tab PO BID 05/15/17 [History] Vitamin E 400 units PO DAILY 05/15/17 [History] Lutein 20 mg PO DAILY 05/16/17 [History] Ondansetron [Ondansetron ODT] 4 mg PO ASDIRECTED PRN 03/31/18 [History] Ascorbic Acid [Vitamin C] 1,000 mg PO BID 02/28/19 [History] Baclofen 10 mg PO ASDIRECTED PRN 02/28/19 [History] Calcium Carbonate/Vitamin D3 [Caltrate 600 Plus D3 Tablet] 1 tab PO BID [History] Cholecalciferol (Vitamin D3) [Vitamin D3] 2,000 unit PO DAILY 02/28/19 [History] Cyanocobalamin (Vitamin B-12) [Vitamin B-12] 3,000 mcg PO DAILY 02/28/19 [ History] Divalproex Sodium 250 mg PO BEDTIME 02/28/19 [History] Ldn 4.5 mg PO QPM 02/28/19 [History] Magnesium 250 mg PO QPM 02/28/19 [History] Patient Handouts: Head Injury, Adult, [id number], Syncope, [id number] Referrals: Susy Estrada DO [Physician] - 03/11/19 12:30 pm - Discharge Summary/Plan Comment DC Time >30 min.: No - Patient Data Vitals - Most Recent: Last Vital Signs Temp 36.6 C 03/01/19 07:04 Pulse 78 03/01/19 07:04 Resp 18 03/01/19 07:04 BP 124/83 03/01/19 07:04 Pulse Ox 97 03/01/19 07:04 Orthostatic Blood Pressure [ 136/78 Standing] Orthostatic Blood Pressure [ 142/83 Sitting] Orthostatic Blood Pressure [ 139/80 Supine] Weight - Most Recent: 83.053 kg I&O - Last 24 hours: Intake & Output 02/28/19 03/01/19 03/01/19 22:59 06:59 14:59 Intake Total 880 Output Total 500 Balance 380 Lab Results - Last 24 hrs: Laboratory Results - last 24 hr 02/28/19 02/28/19 02/28/19 Range/Units 18:02 18:02 18:02 WBC 8.39 (4.0-11.0) K/uL RBC 4.26 L (4.30-5.90) M/uL Hgb 12.7 (12.0-16.0) g/dL Hct 39.6 (36.0-46.0) % MCV 93.0 (80.0-98.0) fL MCH 29.8 (27.0-32.0) pg MCHC 32.1 (31.0-37.0) g/dL RDW Std Deviation 48.3 (28.0-62.0) fl RDW Coeff of Nicky 14 (11.0-15.0) % Plt Count 352 (150-400) K/uL MPV 9.70 (7.40-12.00) fL Neut % (Auto) 42.5 L (48.0-80.0) % Lymph % (Auto) 38.9 (16.0-40.0) % [place] % (Auto) 15.1 H (0.0-15.0) % Eos % (Auto) 3.3 (0.0-7.0) % Baso % (Auto) 0.2 (0.0-1.5) % Neut # (Auto) 3.6 (1.4-5.7) K/uL Lymph # (Auto) 3.3 H (0.6-2.4) K/uL [place] # (Auto) 1.3 H (0.0-0.8) K/uL Eos # (Auto) 0.3 (0.0-0.7) K/uL Baso # (Auto) 0.0 (0.0-0.1) K/uL Nucleated RBC % 0.0 /100WBC Nucleated RBCs # 0 K/uL Lactate (0.20-2.00) mmol/L Sodium 141 (136-145) mmol/L Potassium 4.3 (3.5-5.1) mmol/L Chloride 105 (98-107) mmol/L Carbon Dioxide 24.5 (21.0-32.0) mmol/L BUN 28 H (7.0-18.0) mg/dL Creatinine 2.0 H (0.6-1.0) mg/dL Est Cr Clr Drug Dosing 26.24 mL/min Estimated GFR (MDRD) 25.2 ml/min Glucose 105 (74-106) mg/dL Calcium 10.2 H (8.5-10.1) mg/dL Total Bilirubin 0.2 (0.2-1.0) mg/dL AST 14 L (15-37) IU/L ALT 15 (14-63) IU/L Alkaline Phosphatase 76 (46-116) U/L Creatine Kinase 99 (26-308) U/L Troponin I < 0.050 (0.000-0.056) ng/mL Total Protein 7.5 (6.4-8.2) g/dL Albumin 4.0 (3.4-5.0) g/dL Globulin 3.5 (2.6-4.0) g/dL Albumin/Globulin Ratio 1.1 (0.9-1.6) Urine Color Urine Appearance Urine pH (5.0-8.0) Ur Specific [place] (1.001-1.035) Urine Protein (NEGATIVE) mg/dL Urine Glucose (UA) (NEGATIVE) mg/dL Urine Ketones (NEGATIVE) mg/dL Urine Occult Blood (NEGATIVE) Urine Nitrite (NEGATIVE) Urine Bilirubin (NEGATIVE) Urine Urobilinogen (<2.0) EU/dL Ur Leukocyte Esterase (NEGATIVE) 02/28/19 02/28/19 03/01/19 Range/Units 18:55 19:04 05:15 WBC 6.75 (4.0-11.0) K/uL RBC 3.85 L (4.30-5.90) M/uL Hgb 11.2 L (12.0-16.0) g/dL Hct 36.4 (36.0-46.0) % MCV 94.5 (80.0-98.0) fL MCH 29.1 (27.0-32.0) pg MCHC 30.8 L (31.0-37.0) g/dL RDW Std Deviation 49.4 (28.0-62.0) fl RDW Coeff of Nicky 14 (11.0-15.0) % Plt Count 308 (150-400) K/uL MPV 9.50 (7.40-12.00) fL Neut % (Auto) 36.0 L (48.0-80.0) % Lymph % (Auto) 42.1 H (16.0-40.0) % [place] % (Auto) 15.0 (0.0-15.0) % Eos % (Auto) 6.8 (0.0-7.0) % Baso % (Auto) 0.1 (0.0-1.5) % Neut # (Auto) 2.4 (1.4-5.7) K/uL Lymph # (Auto) 2.8 H (0.6-2.4) K/uL [place] # (Auto) 1.0 H (0.0-0.8) K/uL Eos # (Auto) 0.5 (0.0-0.7) K/uL Baso # (Auto) 0.0 (0.0-0.1) K/uL Nucleated RBC % 0.0 /100WBC Nucleated RBCs # 0 K/uL Lactate 1.9 (0.20-2.00) mmol/L Sodium (136-145) mmol/L Potassium (3.5-5.1) mmol/L Chloride (98-107) mmol/L Carbon Dioxide (21.0-32.0) mmol/L BUN (7.0-18.0) mg/dL Creatinine (0.6-1.0) mg/dL Est Cr Clr Drug Dosing mL/min Estimated GFR (MDRD) ml/min Glucose (74-106) mg/dL Calcium (8.5-10.1) mg/dL Total Bilirubin (0.2-1.0) mg/dL AST (15-37) IU/L ALT (14-63) IU/L Alkaline Phosphatase (46-116) U/L Creatine Kinase (26-308) U/L Troponin I (0.000-0.056) ng/mL Total Protein (6.4-8.2) g/dL Albumin (3.4-5.0) g/dL Globulin (2.6-4.0) g/dL Albumin/Globulin Ratio (0.9-1.6) Urine Color YELLOW Urine Appearance CLEAR Urine pH 5.5 (5.0-8.0) Ur Specific [place] 1.025 (1.001-1.035) Urine Protein NEGATIVE (NEGATIVE) mg/dL Urine Glucose (UA) NEGATIVE (NEGATIVE) mg/dL Urine Ketones TRACE H (NEGATIVE) mg/dL Urine Occult Blood NEGATIVE (NEGATIVE) Urine Nitrite NEGATIVE (NEGATIVE) Urine Bilirubin NEGATIVE (NEGATIVE) Urine Urobilinogen 0.2 (<2.0) EU/dL Ur Leukocyte Esterase NEGATIVE (NEGATIVE) 03/01/19 Range/Units 05:15 WBC (4.0-11.0) K/uL RBC (4.30-5.90) M/uL Hgb (12.0-16.0) g/dL Hct (36.0-46.0) % MCV (80.0-98.0) fL MCH (27.0-32.0) pg MCHC (31.0-37.0) g/dL RDW Std Deviation (28.0-62.0) fl RDW Coeff of Nicky (11.0-15.0) % Plt Count (150-400) K/uL MPV (7.40-12.00) fL Neut % (Auto) (48.0-80.0) % Lymph % (Auto) (16.0-40.0) % [place] % (Auto) (0.0-15.0) % Eos % (Auto) (0.0-7.0) % Baso % (Auto) (0.0-1.5) % Neut # (Auto) (1.4-5.7) K/uL Lymph # (Auto) (0.6-2.4) K/uL [place] # (Auto) (0.0-0.8) K/uL Eos # (Auto) (0.0-0.7) K/uL Baso # (Auto) (0.0-0.1) K/uL Nucleated RBC % /100WBC Nucleated RBCs # K/uL Lactate (0.20-2.00) mmol/L Sodium 143 (136-145) mmol/L Potassium 4.5 (3.5-5.1) mmol/L Chloride 109 H (98-107) mmol/L Carbon Dioxide 24.4 (21.0-32.0) mmol/L BUN 19 H (7.0-18.0) mg/dL Creatinine 1.4 H (0.6-1.0) mg/dL Est Cr Clr Drug Dosing 37.49 mL/min Estimated GFR (MDRD) 38.1 ml/min Glucose 93 (74-106) mg/dL Calcium 8.5 (8.5-10.1) mg/dL Total Bilirubin (0.2-1.0) mg/dL AST (15-37) IU/L ALT (14-63) IU/L Alkaline Phosphatase (46-116) U/L Creatine Kinase (26-308) U/L Troponin I (0.000-0.056) ng/mL Total Protein (6.4-8.2) g/dL Albumin (3.4-5.0) g/dL Globulin (2.6-4.0) g/dL Albumin/Globulin Ratio (0.9-1.6) Urine Color Urine Appearance Urine pH (5.0-8.0) Ur Specific [place] (1.001-1.035) Urine Protein (NEGATIVE) mg/dL Urine Glucose (UA) (NEGATIVE) mg/dL Urine Ketones (NEGATIVE) mg/dL Urine Occult Blood (NEGATIVE) Urine Nitrite (NEGATIVE) Urine Bilirubin (NEGATIVE) Urine Urobilinogen (<2.0) EU/dL Ur Leukocyte Esterase (NEGATIVE) TYLER Results - Last 24 hrs: Microbiology 02/28/19 19:16 Anaerobic Blood Culture - Final Blood - Venous - Lab Draw Med Orders - Current: Current Medications Acetaminophen (Tylenol) 650 mg PO Q6H PRN PRN Reason: Pain Last Admin: 03/01/19 06:02 Dose: 650 mg Baclofen (Lioresal) 10 mg PO TID PRN PRN Reason: Muscle Spasm Divalproex Sodium (Divalproex Sodium) 250 mg PO BEDTIME KEVIN Gabapentin (Neurontin) 300 mg PO QPM KEVIN Sodium Chloride (Normal Saline) 1,000 mls @ 125 mls/hr IV ASDIRECTED KEVIN Last Admin: 03/01/19 00:02 Dose: 125 mls/hr Levothyroxine Sodium (Levothyroxine) 75 mcg PO ACBREAKFAST KEVIN Last Admin: 03/01/19 06:54 Dose: 75 mcg Ondansetron HCl (Zofran) 4 mg IVPUSH Q4H PRN PRN Reason: Nausea Pantoprazole Sodium (Protonix) 40 mg PO BEDTIME KEVIN Venlafaxine HCl (Effexor Xr) 300 mg PO BEDTIME KEVIN Discontinued Medications Divalproex Sodium (Divalproex Sodium) 250 mg PO NOW STA Stop: 02/28/19 23:39 Last Admin: 03/01/19 00:05 Dose: 250 mg Sodium Chloride (Normal Saline) 1,000 mls @ 999 mls/hr IV STAT ONE Stop: 02/28/19 19:04 Last Admin: 02/28/19 18:47 Dose: 999 mls/hr Vancomycin HCl 1 gm/ Sodium (Chloride) 250 mls @ 166 mls/hr IV ONETIME ONE Stop: 02/28/19 20:21 Last Admin: 02/28/19 19:10 Dose: 166 mls/hr Levofloxacin/Dextrose 750 mg/ (Premix) 150 mls @ 100 mls/hr IV ONETIME ONE Stop: 02/28/19 20:20 Last Admin: 02/28/19 19:11 Dose: 100 mls/hr Pantoprazole Sodium (Protonix) 40 mg PO NOW STA Stop: 02/28/19 23:37 Last Admin: 03/01/19 00:05 Dose: 40 mg Venlafaxine HCl (Effexor Xr) 300 mg PO NOW STA Stop: 02/28/19 23:38 Last Admin: 03/01/19 00:02 Dose: 300 mg
[2019-03-01] MEDS ORDERED: Gabapentin 300 MG Cap PO SCH (18:00)
[2019-03-01] MEDS ORDERED: Divalproex Sodium Delayed-Release 250 MG Tab.CR PO SCH (21:00)
[2019-03-01] MEDS ORDERED: Venlafaxine 75 MG Cap.ER PO SCH (21:00)
[2019-03-01] MEDS ORDERED: Pantoprazole 40 MG Tab.CR PO SCH (21:00)
== END 2019-03-01 08:00 | disposition home or self-care (01) ==
LOC: MW.ED 17:34 → MW.MS 20:11
PROVIDERS: ADMIT Internal Medicine; ATTEND Internal Medicine
DX: S06.0X0A Concussion without loss of consciousness, initial encounter (principal); E86.0 Dehydration; N17.9 Acute kidney failure, unspecified; R55 Syncope and collapse; E03.9 Hypothyroidism, unspecified; G43.909 Migraine, unspecified, not intractable, without status migrainosus; W22.8XXA Striking against or struck by other objects, initial encounter; Z88.0 Allergy status to penicillin; Z88.1 Allergy status to other antibiotic agents; Z79.82 Long term (current) use of aspirin; Z79.899 Other long term (current) drug therapy
CPT/HCPCS: 36415; 70450; 71045; 72125; 72170; 73060; 73110; 80048; 80053; 81003; 82550; 83605; 84484; 85025; 87040; 93005; 96361; 96365; 96366; 96368; 97161; 99285; A4217; A9270; J1956; J3370; J7040; J7050